=== PATIENT | female | born 1945 | race Hispanic/Latino ===

== ENCOUNTER 2017-03-28 10:19 | Outpatient (CLI) | payer MEDICARE, BC ==
--- NOTE | 2017-03-28 12:07 | MMO ---
BILATERAL SCREENING MAMMOGRAMS: Date: 03/28/17 Comparison made to prior exam from 2016. This patient's mammogram was interpreted with the assistance of computer-aided detection. FINDINGS: Scattered fibroglandular densities. Vascular calcifications and benign-appearing calcifications. No m ass or nodule. No interval change. Recommend one year follow-up. IMPRESSION: BIRADS 2: Benign Finding(s) POS: [facility]
== END 2017-03-28 10:20 | disposition home or self-care (01) ==
LOC: MAMMO 10:19
PROVIDERS: ATTEND Family Medicine
DX: Z12.31 Encounter for screening mammogram for malignant neoplasm of breast (principal)
CPT/HCPCS: 77067; G0202

== ENCOUNTER 2017-08-18 11:37 | Emergency (ER) | payer MEDICARE, BC ==
[2017-08-18 12:40] LABS: #Eosinphils 0.1 thou/uL (0.0-0.7); #Lymphocytes 1.9 thou/uL (1.20-3.40); #Monocytes 0.5 thou/uL (0.11-0.59); #Neutrophils 5.3 thou/uL (1.40-6.50); %Basophils 0.1 % (0.0-1.0); %Eosinophils 0.7 % (0.0-10.0); %Monocytes 6.8 % (0.0-10.0); %Neutrophils 68.4 % (42.0-75.0); Hemoglobin 14.2 g/dL (12.0-16.0); Mean Corpuscular HGB CONC 32.6 g/dL (32.0-36.0); Mean Corpuscular Volume 92.2 fl (81.0-99.0); Platelet Count 353 thou/uL (130-400); RBC Distribution Width 12.8 % (11.5-14.5); Red Blood Cell (RBC) Count 4.74 mill/uL (4.20-5.40); White Blood Cell (WBC) Count 7.7 thou/uL (4.8-10.8)
[2017-08-18 12:55] LABS: CKMB 3.2 ng/mL (0-6.6); Troponin I Less than 0.010 ng/mL (< 0.028)
--- NOTE | 2017-08-18 13:21 | RAD ---
PORTABLE UPRIGHT FRONTAL CHEST RADIOGRAPH: Date: 08/18/17 COMPARISON: 05/14/15. HISTORY: Injury. FINDINGS: Midline sternotomy wires are present. There are postsurgical clips in the right upper quadrant sugges ting prior cholecystectomy. Lung parenchyma is clear. IMPRESSION: No acute findings. POS: [facility]
== END 2017-08-18 14:54 | disposition home or self-care (01) ==
LOC: ERS 11:37
DX: B34.9 Viral infection, unspecified (principal); J45.909 Unspecified asthma, uncomplicated; E11.40 Type 2 diabetes mellitus with diabetic neuropathy, unspecified; E03.9 Hypothyroidism, unspecified; K21.9 Gastro-esophageal reflux disease without esophagitis; E78.5 Hyperlipidemia, unspecified; I10 Essential (primary) hypertension; Z79.82 Long term (current) use of aspirin; Z79.891 Long term (current) use of opiate analgesic; Z79.84 Long term (current) use of oral hypoglycemic drugs; Z79.899 Other long term (current) drug therapy
CPT/HCPCS: 71045; 82553; 84484; 85025; 93005

== ENCOUNTER 2017-09-25 13:46 | Outpatient (CLI) | payer MEDICARE, BC | END 2017-09-25 13:47 | disposition home or self-care (01) | LOC: BICULT 13:46 → EDSTATUS 14:15 | PROVIDERS: ATTEND Urology | DX: N13.30 Unspecified hydronephrosis (principal); N99.3 Prolapse of vaginal vault after hysterectomy | CPT/HCPCS: 76770 ==

== ENCOUNTER 2018-05-12 21:41 | Inpatient (IN) | payer MEDICARE, BC ==
[2018-05-12 22:55] LABS: #Basophils 0.1 thou/uL (0.0-0.2); #Lymphocytes 1.5 thou/uL (1.20-3.40); #Monocytes 1.1 thou/uL (0.11-0.59); #Neutrophils 9.7 thou/uL (1.40-6.50); %Basophils 0.4 % (0.0-1.0); %Eosinophils 0.3 % (0.0-10.0); %Monocytes 8.5 % (0.0-10.0); %Neutrophils 78.8 % (42.0-75.0); Hemoglobin 12.8 g/dL (12.0-16.0); Mean Corpuscular HGB CONC 34.1 g/dL (32.0-36.0); Mean Corpuscular Hemoglobin 33.7 pg (27.0-31.0); Mean Corpuscular Volume 98.9 fL (78.0-98.0); Mean Platelet Volume 6.8 fL (7.4-10.4); Platelet Count 282 thou/uL (130-400); RBC Distribution Width 11.9 % (11.5-14.5); Red Blood Cell (RBC) Count 3.79 mill/uL (4.20-5.40); White Blood Cell (WBC) Count 12.4 thou/uL (4.8-10.8)
--- NOTE | 2018-05-12 22:57 | RAD ---
UPRIGHT PORTABLE CHEST ONE VIEW: History: Generalized weakness, unwitnessed fall. FINDINGS: Rotation to the right. Midline sternotomy. No confluent pneumonia, overt edema or pleural effusion. N o evidence for pneumothorax. IMPRESSION: No significant acute intrathoracic disease. Rotation to the right. POS: [facility]
--- NOTE | 2018-05-12 23:07 | CT ---
BRAIN CT WITHOUT IV CONTRAST: History: 73-year-old female with history of injury following a fall. Comparison: 05-15-15 FINDINGS: Minimal motion artifact. There is some atrophy and chronic white matter ischemic change. No focal mas s or midline shift. No intra or extraaxial hemorrhage. Sinuses and mastoids are clear. IMPRESSION: No mass or bleed or other significant acute process. POS: [facility]
[2018-05-12 23:15] LABS: ALT (SGPT) 25 U/L (8-55); AST (SGOT) 23 U/L (5-34); Alkaline Phosphatase 53 U/L (40-150); Anion Gap 19 mmol/L (10-20); BUN (Urea Nitrogen) 21 mg/dL (9.8-20.1); Bilirubin, Total 0.4 mg/dL (0.2-1.2); Calc. Creatinine Clearance 0 mL/min (70-130); Calcium 9.9 mg/dL (7.8-10.44); Carbon Dioxide 22 mmol/L (23-31); Chloride 101 mmol/L (98-107); Estimated GFR-MDRD 44; Glucose 95 mg/dL (83-110); Lipase Less than 4 U/L (8-78); Potassium 5.2 mmol/L (3.5-5.1); Sodium 137 mmol/L (136-145)
[2018-05-13 00:07] LABS: Bilirubin Negative (Negative); Blood, Urine Small (Negative); Clarity CLOUDY (Clear); Glucose, Urine (Dipstick) Negative (Negative); Leukocyte Large (Negative); Nitrite Positive (Negative); Protein, Urine (Dipstick) 100 mg/dL (Neg-Trace); Specific Gravity, Urine 1.018 (1.002-1.036); Urobilinogen 0.2 mg/dL (0.2-1.0)
[2018-05-13 00:10] LABS: Bacteria/HPF 1+ HPF (None Seen); Hyaline Casts/LPF 0-3 HYALINE CAST LPF (0-3 Hyaline); Squamous Epithelial None Seen HPF (0-3)
[2018-05-13] MEDS ORDERED: Metoclopramide HCl 10 MG/2 ML VIAL ONE (00:35)
[2018-05-13] MEDS ORDERED: Acetaminophen 500 MG TAB ONE (00:45)
[2018-05-13] MEDS ORDERED: Nitrofurantoin Monohyd/M-Cryst 100 MG CAP PO SCH (01:45)
[2018-05-13 02:49] VITALS: BMI 29.8
[2018-05-13 02:50] LABS: Troponin I Less than 0.010 ng/mL (< 0.028)
[2018-05-13] MEDS ORDERED: Acetaminophen 325 MG TAB PO PRN (03:00)
[2018-05-13] MEDS ORDERED: Ondansetron PF 4 MG/2 ML Vial IVP PRN (03:00)
[2018-05-13] MEDS ORDERED: Ondansetron ODT 4 MG TAB SL PRN (03:00)
[2018-05-13 04:46] LABS: #Lymphocytes 1.9 thou/uL (1.20-3.40); #Monocytes 0.7 thou/uL (0.11-0.59); %Basophils 0.2 % (0.0-1.0); %Eosinophils 0.1 % (0.0-10.0); %Lymphocytes 16.2 % (21.0-51.0); %Monocytes 5.6 % (0.0-10.0); %Neutrophils 77.9 % (42.0-75.0); Hemoglobin 12.2 g/dL (12.0-16.0); Mean Corpuscular HGB CONC 33.6 g/dL (32.0-36.0); Mean Corpuscular Hemoglobin 33.2 pg (27.0-31.0); Mean Corpuscular Volume 98.8 fL (78.0-98.0); Mean Platelet Volume 6.7 fL (7.4-10.4); Platelet Count 281 thou/uL (130-400); RBC Distribution Width 11.9 % (11.5-14.5); Red Blood Cell (RBC) Count 3.68 mill/uL (4.20-5.40); White Blood Cell (WBC) Count 11.6 thou/uL (4.8-10.8)
[2018-05-13 05:11] LABS: Anion Gap 18 mmol/L (10-20); BUN (Urea Nitrogen) 20 mg/dL (9.8-20.1); Calc. Creatinine Clearance 48 mL/min (70-130); Calcium 9.6 mg/dL (7.8-10.44); Carbon Dioxide 22 mmol/L (23-31); Chloride 102 mmol/L (98-107); Estimated GFR-MDRD 49; Glucose 82 mg/dL (83-110); Potassium 4.9 mmol/L (3.5-5.1); Sodium 137 mmol/L (136-145)
[2018-05-13 05:17] LABS: Troponin I Less than 0.010 ng/mL (< 0.028)
[2018-05-13] MEDS ORDERED: Dextrose 5% in Water 1,000 ML IV PRN (05:20)
[2018-05-13] MEDS ORDERED: Dextrose 50% Abboject 50 ML SYRINGE SLOW IVP PRN (05:20)
[2018-05-13] MEDS ORDERED: Senokot S 8.6-50 MG TAB PO PRN (05:20)
[2018-05-13] MEDS ORDERED: Ondansetron ODT 4 MG TAB PO PRN (05:20)
[2018-05-13] MEDS ORDERED: Promethazine 25 MG TAB PO PRN (05:20)
[2018-05-13] MEDS ORDERED: traMADol HCl 50 MG TAB PO PRN (05:20)
[2018-05-13] MEDS: Levothyroxine Sodium 50 MCG TAB PO SCH (05:45)
[2018-05-13] MEDS: Sodium Chloride 0.9% 1,000 ML IV SCH ×4 (05:48→17:25)
--- NOTE | 2018-05-13 07:51 | RAD ---
THREE VIEWS LUMBAR SPINE: DATE: 05/13/2018. HISTORY: Trauma, fall, pain. FINDINGS: Radiopaque device overlies the lower pelvis. There is atherosclerotic calcification of the abdominal aorta and its branches. There is anterolisthesis of L4 on L5 measuring 1.5 cm. Multilevel disk spa ce narrowing, degenerative end plate, and anterior osteophyte formation noted at the thoracolumbar ju nction. There is prominent facet hypertrophy at L3-4, L4-5, and L5-S1. Disk space narrowing and vac uum disk formation at L4-5 and L5-S1. No acute fracture is seen. IMPRESSION: Prominent degenerative change with no evidence for acute fracture or dislocation. POS: [facility]
--- NOTE | 2018-05-13 08:01 | HP ---
PRIMARY CARE PHYSICIAN: The patient's PCP is myself, Dr. Javier Crawford. CHIEF COMPLAINT: Syncopal episode. HISTORY OF PRESENT ILLNESS: The patient with polyneuropathy regarding her diabetes, has struggled with dizziness over the last 1 to 2 years. She has been seen in the emergency department for dizziness and has been admitted in 2016 for near syncopal episode with urinary tract infection. The patient was found to have likely UTI on urine dip in the emergency room. The patient reportedly fell to right side after passing out and subsequently transferred to the emergency department by [facility] and [facility] has evaluated and did not have any findings of hemorrhagic bleeding. The patient did not show any signs of fractures on x-rays. The patient states her radio electronics officer is Dr. Dhaliwal. Last echo was 3 years ago. REVIEW OF SYSTEMS: No fevers or chills. Positive fatigue. No chest pain or shortness of breath. No cough. Positive nausea. No vomiting. Positive acid reflux. No blood in stool. Positive dysuria and urinary frequency. Some episodes of incontinence. Mild lower extremity edema. No skin breakdown reported. Positive dizziness and syncopal episode. LABORATORY DATA: Review of lab work; white blood cell count of 12.4, slightly macrocytic at 98.9, left shift with neutrophils of 97.8. Troponins x3 of less than 0.01. Lipase less than 4. Creatinine of 1.19, sodium of 137, potassium of 5.2 with repeat of 4.9, CO2 of 22, total bilirubin of 0.4, AST of 23, ALT of 25, and albumin of 4.0. Urinalysis with positive nitrites, positive large leukocyte esterase. On microscopy, positive blood, too numerous to count white blood cells, positive bacteria. Brain CT, no acute hemorrhagic or intracranial events. IMAGING DATA: Chest x-ray without acute cardiopulmonary findings. Lumbar spine x-ray read is pending. No grossly apparent fractures. We will follow up on radiology read. It does look like she has some degenerative disk disease. On review of past medical, social, and surgical history; allergies include codeine, Demerol, and penicillins. The patient takes tramadol on an outpatient basis regularly. She has taken morphine in the past. Iron deficiency anemia; hypothyroidism; diabetes type 2; hyperlipidemia; chronic pain syndrome with polyneuropathy; macular degeneration; hypertension; venous insufficiency, peripherally; history of mild intermittent asthma; gastroesophageal reflux disease; history of gout; CKD, stage 3; mixed urinary incontinence; prolapse of vaginal vault following hysterectomy; history of CABG, sensorineural hearing loss; gait instability. The patient is followed by Dr. Richard Woodson of Urology; Dr. Jung for Neurology; Dr. Carlos, Nephrology; Dr. Dhaliwal, Cardiology; Dr. Mendez, Gastroenterology; Dr. Myles, for Pain Management, carpal tunnel; Dr. Lee, Ophthalmology; and Dr. Barclay of Podiatry. Last stress test have on file was in 2013, was normal. HOME MEDICATIONS: Include; 1. Spironolactone 25 mg. 2. Tylenol Arthritis for breakthrough pain on top of extended-release tramadol 100 mg once daily. 3. Meclizine 25 mg one tab p.o. b.i.d. p.r.n. dizziness. 4. Metoprolol 25 mg half tablet twice daily. 5. Ferrous sulfate 325 mg daily. 6. Losartan 25 mg half tab daily. 7. Nexium 40 mg daily. 8. Lasix 20 mg one-half tab daily. 9. Flovent p.r.n. cough, wheeze twice daily. 10. Neurontin 100 mg twice daily. 11. Trinity 180 mg daily. 12. Metformin 500 mg extended release 2 tabs twice daily. 13. Baby aspirin 81 mg. 14. Simvastatin 40 mg. 15. Levothyroxine 50 mcg. SOCIAL HISTORY: The patient is reported to be a nonsmoker. Has a support of son living nearby, currently living in [place] with home health. PHYSICAL EXAMINATION: VITAL SIGNS: On arrival to floor, temperature of 98.5, pulse of 96, respiratory rate of 20, and blood pressure of 110/56. GENERAL: The patient is arousable, however, sleeping on entry to room. Does report some joint pain to right side, where she had fallen, verbalizes understanding regarding tramadol on as-needed basis at this point. HEENT: Head is normocephalic, atraumatic. Extraocular movements are intact. Oral mucosa is dry. HEART: Slightly tachycardic. No irregular beats. No murmurs. LUNGS: Clear to auscultation bilaterally. No rubs or wheezes. ABDOMEN: Soft, nontender. Positive bowel sounds throughout. EXTREMITIES: Lower extremities with trace pitting edema bilaterally. No cyanosis. NEUROLOGIC: The patient is arousable and oriented, however, quickly drifts off back to sleep. No focal deficits. ASSESSMENT AND PLAN: Syncopal episode, urinary tract infection. Right shoulder pain, chronic pain with polyneuropathy, diabetes type 2, coronary artery disease, hypothyroidism. We will transition from Macrobid, which was given in the emergency department as this may be a complicated urinary tract infection and escalate to Cipro. We will give IV fluids for dehydration and urinary tract infection. The patient has history of hydronephrosis and chronic kidney disease, stage 3. We will trend creatinine. Monitor for volume overload and restart the patient's Lasix when needed likely in the next 24 hours. We will get Physical Therapy to evaluate the patient and get her out of bed later today. We will brush the patient's echo and carotid Dopplers given longstanding history of dizziness and gait instability, most likely is just acutely worse made by her urinary tract infection. Once the antibiotics on board, and the patient stabilizes, we would likely transition to oral. Return the patient to home with home health to [place]. We will continue with PPI coverage and look at Lovenox prophylaxis coverage. Job ID: [id number]
[2018-05-13] MEDS: Losartan 25 MG TAB PO SCH (08:03)
[2018-05-13] MEDS: Acetaminophen 500 MG TAB PO PRN ×2 (08:04→18:12)
[2018-05-13] MEDS: Atenolol 25 MG TAB PO SCH (08:04)
[2018-05-13] MEDS: Aspirin 325 mg Enteric Coated Tablet PO SCH (08:04)
[2018-05-13] MEDS: Pantoprazole 40 MG GRANULES PACKET PO SCH ×2 (09:44→09:46)
[2018-05-13] MEDS: Gabapentin 400 MG CAP PO SCH ×4 (09:44→20:09)
--- NOTE | 2018-05-13 09:53 | ULT ---
CAROTID DUPLEX SONOGRAM: History: Syncope. Vascular disease. FINDINGS: Right: Noncalcified plaque. Color and spectral doppler evaluation, peak systolic velocity of 98 cm/sec and I C to CC ratio of 0.9 suggests no hemodynamically significant stenosis within the extracranial right I CA. Peak systolic velocity in the external carotid arteries measured at 192 cm/sec. Antegrade flow wi thin the vertebral artery. Left: Scattered plaque. Color and spectral doppler evaluation, peak systolic velocity of 97 cm/sec and IC t o CC ratio of 1.1 cm suggests no hemodynamically significant stenosis within the extracranial left IC A. Antegrade flow within the vertebral arteries. IMPRESSION: 1. Atherosclerosis. No sonographic evidence of significant extracranial ICA stenosis. 2. Incidental noted of elevated velocity within the right external carotid artery that may reflect st enosis and could be a source of carotid bruit. POS: [facility]
[2018-05-13] MEDS: Enoxaparin Sodium 40 MG/0.4 ML SYRINGE SC SCH (20:08)
[2018-05-13] MEDS: Simvastatin 40 MG TAB PO SCH (20:09)
[2018-05-14] MEDS: Acetaminophen 500 MG TAB PO PRN ×2 (04:14→15:47)
[2018-05-14 05:48] LABS: #Eosinphils 0.1 thou/uL (0.0-0.7); #Lymphocytes 1.5 thou/uL (1.20-3.40); #Monocytes 0.9 thou/uL (0.11-0.59); #Neutrophils 7.7 thou/uL (1.40-6.50); %Basophils 0.1 % (0.0-1.0); %Eosinophils 0.5 % (0.0-10.0); %Lymphocytes 14.9 % (21.0-51.0); %Monocytes 8.5 % (0.0-10.0); Mean Corpuscular HGB CONC 33.6 g/dL (32.0-36.0); Mean Platelet Volume 7.4 fL (7.4-10.4); Platelet Count 266 thou/uL (130-400); Red Blood Cell (RBC) Count 3.33 mill/uL (4.20-5.40); White Blood Cell (WBC) Count 10.2 thou/uL (4.8-10.8)
[2018-05-14] MEDS: Levothyroxine Sodium 50 MCG TAB PO SCH (05:53)
[2018-05-14 06:05] LABS: Anion Gap 14 mmol/L (10-20); BUN (Urea Nitrogen) 15 mg/dL (9.8-20.1); Calc. Creatinine Clearance 55 mL/min (70-130); Calcium 8.6 mg/dL (7.8-10.44); Carbon Dioxide 24 mmol/L (23-31); Chloride 101 mmol/L (98-107); Estimated GFR-MDRD 55; Glucose 122 mg/dL (83-110); Magnesium 1.5 mg/dL (1.6-2.6); Potassium 3.9 mmol/L (3.5-5.1); Sodium 135 mmol/L (136-145)
[2018-05-14 06:26] LABS: Free T4 (Free Thyroxine) 1.04 ng/dL (0.70-1.48); Thyroid Stimulating Hormone 0.3509 uIU/mL (0.35-4.94)
[2018-05-14 06:40] LABS: Folate (Folic Acid) 15.5 ng/mL (7.0-31.4)
[2018-05-14] MEDS ORDERED: Furosemide 40 MG TAB PO SCH (07:30)
[2018-05-14] MEDS ORDERED: Magnesium 2 GM/50 ML 2 GM in Premix Bag 1 BAG IVPB SCH (07:45)
[2018-05-14] MEDS: Atenolol 25 MG TAB PO SCH (09:48)
[2018-05-14] MEDS: Gabapentin 400 MG CAP PO SCH ×3 (09:48→20:46)
[2018-05-14] MEDS: Losartan 25 MG TAB PO SCH (09:49)
[2018-05-14] MEDS: Aspirin 325 mg Enteric Coated Tablet PO SCH (09:49)
[2018-05-14] MEDS: Enoxaparin Sodium 40 MG/0.4 ML SYRINGE SC SCH (20:45)
[2018-05-14] MEDS: Simvastatin 40 MG TAB PO SCH (20:46)
--- NOTE | 2018-05-14 22:52 | PRG ---
DATE OF SERVICE: 05/14/2018 HISTORY OF PRESENT ILLNESS: The patient is responding to antibiotics well, however, did have fever this morning of over 101. The patient has been restarted on her Lasix and reports good effect, clearing of lungs, felt better after breathing treatment from a respiratory status. Daughter at bedside states the patient is much more clear of mind compared to prior to admission. REVIEW OF VITAL SIGNS: Temperature 97.6, pulse of 63, respiratory rate of 16, oxygen saturation 98% on room air, blood pressure 124/81. LABORATORY WORK: Improved white blood cell count 10.2, hemoglobin following IV rehydration 11.0, neutrophil percent still elevated at 76. Blood glucose 173 to 132 in the last 12 hours. Magnesium 1.5, creatinine 0.9, sodium of 135, potassium of 3.9. T3 slightly low at 1.3. Blood cultures at 24 hours negative. Growth E coli with sensitivity to fluoroquinolones confirmed on urine culture. Echocardiogram with 45% to 50% ejection fraction, technically difficult study. Carotid Dopplers without any severe stenosis on the lower segment. PHYSICAL EXAMINATION: GENERAL: The patient is alert and oriented, no acute distress. HEENT: Head is normocephalic, atraumatic. Extraocular movements are intact. Sclerae are white. Oral mucosa is moist. NECK: Supple. HEART: Regular rate and rhythm. No murmurs auscultated. LUNGS: Clear to auscultation bilaterally. No rubs or wheezes. ABDOMEN: Soft, nontender. Positive bowel sounds throughout. EXTREMITIES: Lower extremities without cyanosis or edema. NEUROLOGICAL: The patient is alert and oriented x3. No focal deficits. Speech is normal. ASSESSMENT AND PLAN: Urinary tract infection, metabolic encephalopathy, hypomagnesemia, coronary artery disease, hypothyroid, hypertension. The patient is continued on current medications. We will decrease Lasix back to home dose tomorrow, increase the levothyroxine temporarily while inpatient. We will re-evaluate on outpatient basis if the patient needs to continue higher dose, may be secondary to patient missing one dose or two. Given the patient's continued fevers, we will continue IV antibiotics at this point in time. The patient is inpatient status, and we will follow up in the morning of the patient's progress. She appears to be tracking well with mentation and is working with physical therapy and ambulating better today. Job ID: [id number]
[2018-05-15 05:23] LABS: #Eosinphils 0.1 thou/uL (0.0-0.7); #Neutrophils 6.4 thou/uL (1.40-6.50); %Basophils 0.4 % (0.0-1.0); %Lymphocytes 21.2 % (21.0-51.0); %Neutrophils 67.4 % (42.0-75.0); Hemoglobin 11.5 g/dL (12.0-16.0); Mean Corpuscular HGB CONC 34.1 g/dL (32.0-36.0); Mean Corpuscular Hemoglobin 33.2 pg (27.0-31.0); Mean Corpuscular Volume 97.3 fL (78.0-98.0); Mean Platelet Volume 7.3 fL (7.4-10.4); Platelet Count 293 thou/uL (130-400); RBC Distribution Width 11.9 % (11.5-14.5); Red Blood Cell (RBC) Count 3.46 mill/uL (4.20-5.40); White Blood Cell (WBC) Count 9.5 thou/uL (4.8-10.8)
[2018-05-15 05:46] LABS: ALT (SGPT) 35 U/L (8-55); AST (SGOT) 33 U/L (5-34); Albumin 3.3 g/dL (3.4-4.8); Alkaline Phosphatase 58 U/L (40-150); Anion Gap 12 mmol/L (10-20); BUN (Urea Nitrogen) 15 mg/dL (9.8-20.1); Bilirubin, Total 0.2 mg/dL (0.2-1.2); Calc. Creatinine Clearance 53 mL/min (70-130); Calcium 8.9 mg/dL (7.8-10.44); Carbon Dioxide 28 mmol/L (23-31); Chloride 100 mmol/L (98-107); Estimated GFR-MDRD 53; Globulin 3.1 g/dL (2.4-3.5); Glucose 129 mg/dL (83-110); Potassium 3.8 mmol/L (3.5-5.1); Protein, Total 6.4 g/dL (6.0-8.3); Sodium 136 mmol/L (136-145)
[2018-05-15] MEDS: Levothyroxine Sodium 75 MCG TAB PO SCH (06:10)
[2018-05-15] MEDS: Losartan 25 MG TAB PO SCH (09:33)
[2018-05-15] MEDS: Gabapentin 400 MG CAP PO SCH ×3 (09:33→21:21)
[2018-05-15] MEDS: Atenolol 25 MG TAB PO SCH (09:34)
[2018-05-15] MEDS: Aspirin 325 mg Enteric Coated Tablet PO SCH (09:34)
[2018-05-15] MEDS: Furosemide 20 MG TAB PO SCH (09:35)
[2018-05-15] MEDS: Acetaminophen 500 MG TAB PO PRN (10:25)
[2018-05-15] MEDS: HumaLOG 300 UNITS/3 ML VIAL SC PRN ×2 (11:32→21:36)
[2018-05-15] MEDS ORDERED: traZODone HCl 50 MG TAB PO PRN (14:19)
[2018-05-15] MEDS ORDERED: Melatonin 3 MG TAB PO SCH (21:00)
[2018-05-15] MEDS: Enoxaparin Sodium 40 MG/0.4 ML SYRINGE SC SCH (21:20)
[2018-05-15] MEDS: Ciprofloxacin 500 MG TAB PO SCH (21:20)
[2018-05-15] MEDS: Simvastatin 40 MG TAB PO SCH (21:21)
--- NOTE | 2018-05-15 22:04 | PRG ---
DATE OF SERVICE: 05/15/2018 HISTORY OF PRESENT ILLNESS: The patient had several episodes where she appeared to collapse, but was able to be aroused without any deficits. nurse monitoring did not show any arrhythmias. The patient once fully awakened, she was alert, oriented, had no injuries as 1 episode was in chair and the other was in bed. On discussion with the patient's daughter and the patient, she normally does not nap, however, in the last 2 to 3 months, she has progressively had worsening sleep patterns, only sleeping approximately 5 hours and 1 to 2 hours of that being a nap during the day. The patient was noted to wake up yesterday about 2 o'clock in the morning and not be able to go back to sleep, was napping earlier today and when she is fully awakened, is at her baseline. When she is just woken, however, she appears to be somewhat confused still, is still working with physical therapy well. No new complaints. LABORATORY DATA: White blood cell count of 9.5, hemoglobin of 11.5, neutrophil percent of 65. Creatinine of 1.0, sodium of 136, potassium of 3.8, blood glucose is 95 to 304 in the last 16 hours. Blood cultures remain negative. PHYSICAL EXAMINATION: VITAL SIGNS: Review of vital signs; temperature 97.6, pulse of 62, respiratory rate of 16, oxygen saturation 96% on room air, blood pressure 150/67. GENERAL: The patient is alert, oriented, in no acute distress. HEENT: Head is normocephalic, atraumatic. Extraocular movements are intact. Sclerae are clear. Oral mucosa is moist. NECK: Supple. HEART: Regular rate and rhythm. No murmurs auscultated at time of exam. LUNGS: Clear to auscultation bilaterally. No rubs or wheezes. ABDOMEN: Soft, nontender. Positive bowel sounds throughout. EXTREMITIES: Lower extremities without cyanosis or edema. NEUROLOGICAL: The patient is alert and oriented x3. No focal deficits. Speech is normal. ASSESSMENT AND PLAN: Urinary tract infection; metabolic encephalopathy; insomnia with sleep deprivation; hypothyroidism, continuing with increased dose levothyroxine 75 mcg; given sleep changes, we will cover with melatonin this evening. Continue with ciprofloxacin and titrate to orals. We will likely discharge her home with Home Health as well as with care of daughter and son tomorrow if no further episodes of syncopal like activity. I believe that the episodes described were more along the lines of sleep deprivation and patient falling asleep rather than true syncopal episodes as echo, carotids, and troponins are all looked good during this hospitalization as well as brain CT. We will work on sleep and request sleep aid if needed going forward. Job ID: [id number]
[2018-05-16 05:13] LABS: #Eosinphils 0.1 thou/uL (0.0-0.7); #Lymphocytes 2.7 thou/uL (1.20-3.40); #Neutrophils 4.9 thou/uL (1.40-6.50); %Basophils 0.4 % (0.0-1.0); %Eosinophils 1.5 % (0.0-10.0); %Lymphocytes 31.2 % (21.0-51.0); %Monocytes 11.1 % (0.0-10.0); %Neutrophils 55.8 % (42.0-75.0); Hemoglobin 11.6 g/dL (12.0-16.0); Mean Corpuscular HGB CONC 34.2 g/dL (32.0-36.0); Mean Corpuscular Hemoglobin 33.4 pg (27.0-31.0); Mean Corpuscular Volume 97.6 fL (78.0-98.0); Mean Platelet Volume 7.3 fL (7.4-10.4); Platelet Count 319 thou/uL (130-400); RBC Distribution Width 11.8 % (11.5-14.5); Red Blood Cell (RBC) Count 3.47 mill/uL (4.20-5.40); White Blood Cell (WBC) Count 8.8 thou/uL (4.8-10.8)
[2018-05-16 05:38] LABS: ALT (SGPT) 33 U/L (8-55); AST (SGOT) 25 U/L (5-34); Albumin 3.3 g/dL (3.4-4.8); Alkaline Phosphatase 57 U/L (40-150); Anion Gap 18 mmol/L (10-20); BUN (Urea Nitrogen) 13 mg/dL (9.8-20.1); Bilirubin, Total 0.2 mg/dL (0.2-1.2); Calc. Creatinine Clearance 57 mL/min (70-130); Calcium 8.9 mg/dL (7.8-10.44); Carbon Dioxide 22 mmol/L (23-31); Chloride 98 mmol/L (98-107); Estimated GFR-MDRD 58; Globulin 3.1 g/dL (2.4-3.5); Glucose 130 mg/dL (83-110); Potassium 3.7 mmol/L (3.5-5.1); Protein, Total 6.4 g/dL (6.0-8.3); Sodium 134 mmol/L (136-145)
[2018-05-16] MEDS: Levothyroxine Sodium 75 MCG TAB PO SCH (05:54)
[2018-05-16] MEDS: Ciprofloxacin 500 MG TAB PO SCH (05:54)
[2018-05-16] MEDS: Gabapentin 400 MG CAP PO SCH ×2 (09:11→14:43)
[2018-05-16] MEDS: Atenolol 25 MG TAB PO SCH (09:11)
[2018-05-16] MEDS: Aspirin 325 mg Enteric Coated Tablet PO SCH (09:11)
[2018-05-16] MEDS: Furosemide 20 MG TAB PO SCH (09:11)
[2018-05-16] MEDS: Acetaminophen 500 MG TAB PO PRN ×2 (09:11→14:41)
[2018-05-16] MEDS: Losartan 25 MG TAB PO SCH (09:11)
[2018-05-16] MEDS: HumaLOG 300 UNITS/3 ML VIAL SC PRN (11:50)
--- NOTE | 2018-05-16 11:53 | PQF ---
CLINICAL DOCUMENTATION IMPROVEMENT CLARIFICATION FORM: ICD-10 Updated PLEASE DO AN ADDENDUM TO THE PROGRESS NOTE WITH ANY DOCUMENTATION UPDATES OR ADDITIONS AND CARRY THROUGH TO DC SUMMARY. THANK YOU. DATE: 05/16/18 ATTN: Dr. Crawford Please exercise your independent, professional judgment in responding to the clarification form. Clinical indicators are provided on the bottom of this form for your review Please check appropriate box(es): [ x ] Sepsis due to: E.coli [ ] Localized infection without sepsis [ ] Other diagnosis [ ] Unable to determine In addition, please specify: Present on Admission (POA): [ x ] Yes [ ] No [ ] Unable to determine For continuity of documentation, please document condition throughout progress notes and discharge summary. Thank You. CLINICAL INDICATORS - SIGNS / SYMPTOMS / LABS ER Record 05/12/18: BP 107/64 Pulse 93 H&P 05/13: white blood cell count 12.4 UTI Nursing VS 05/13 @ 0808: Temp 103.0 F PN 05/14: fever this morning of over 101 UTI, metabolic encephalopathy RISKS: H&P: Chronic pain with polyneuropathy, diabetes type 2, CAD. Hx of hydronephrosis and CKD 3. UTI TREATMENT: Order 05/13-05/15: IV Cipro Order 05/15: Cipro 500 mg po. Thank you, Camelia (This form is maintained as a part of the permanent medical record) 2014 [employer]. All Rights Reserved Camelia Fowler RN, BSN [email or web address] Office: [phone] [facility]
[2018-05-16 12:01] VITALS: BP 128/58; TEMP 97.5
--- NOTE | 2018-05-17 05:38 | DIS ---
DATE OF ADMISSION: 05/14/2018 DATE OF DISCHARGE: 05/16/2018 CHIEF COMPLAINT: Syncopal episode. HISTORY OF PRESENT ILLNESS: The patient has responded poorly to urinary tract infections in the past, has had apparent syncopal episode. Had echocardiogram showing 45% to 50% ejection fraction. Carotid Dopplers did not show significant stenosis in lower segments. Brain CT did not show hemorrhagic component. Chest x-ray was clear. The patient did suffer a fall with some bruising peripherally. Lumbar spine x-ray without compression fractures. The patient was found to have metabolic encephalopathy and UTI with sepsis, found to be with E coli, treated with ciprofloxacin which it was sensitive to. The patient transitioned to orals after IV rehydration, returned back to Lasix given patient's mild congestive heart failure, systolic, and did well with blood sugars with sliding scale insulin. The patient's thyroid medications were slightly increased and the patient was noted sleep depravation. Prior to admission, was started on melatonin. DISCHARGE MEDICATIONS: Include spironolactone 12.5 mg daily, melatonin 3 mg at bedtime, levothyroxine increased to 75 mcg q.a.m., ciprofloxacin 500 mg b.i.d. for 5 additional days, tramadol extended release 100 mg daily, simvastatin 40 mg nightly, metoprolol 12.5 mg b.i.d., 1000 mg of metformin b.i.d., meclizine 25 mg one tab p.r.n. dizziness, losartan 12.5 mg daily, gabapentin 800 mg b.i.d., Lasix 20 mg daily, ferrous sulfate 325 mg daily, esomeprazole 40 mg daily, baby aspirin 81 mg, Tylenol 650 q.4 hours p.r.n. pain, rescue inhaler, albuterol sulfate two puffs p.r.n. cough and wheeze. DISCHARGE CONDITION: Good. DISPOSITION: Home with home health, Physical Therapy and Nursing, which patient had prior to admission. Good family support. DISCHARGE DIET: ADA. ACTIVITY: The patient can ambulate with assistance or with a walker. DISCHARGE FOLLOWUP: With myself, Dr. Jaiver Crawford, within 7-10 days of discharge. Job ID: [id number]
--- NOTE | 2018-05-18 11:41 | EKG ---
Test Reason : Blood Pressure : / mmHG Vent. Rate : 088 BPM Atrial Rate : 088 BPM P-R Int : 168 ms QRS Dur : 072 ms QT Int : 350 ms P-R-T Axes : 041 -40 031 degrees QTc Int : 423 ms Sinus rhythm with marked sinus arrhythmia Left axis deviation Low voltage QRS Inferior infarct , age undetermined Abnormal ECG Confirmed by ARMEN MCLAUGHLIN ([id number]), news videotape editor GEENA COLLINS ([id number]) on 05/18/2018 11:41:21 AM Referred By: Confirmed By:ARMEN MCLAUGHLIN
== END 2018-05-16 15:20 | DRG 871 ==
LOC: ERS 21:41 → 2SW 05-13 02:44 → OBSVTOIN 05-14 05:42 → 2NO 05-14 17:45
PROVIDERS: ADMIT Family Medicine; ATTEND Family Medicine
DX: A41.51 Sepsis due to Escherichia coli [E. coli] (principal); G93.41 Metabolic encephalopathy; N39.0 Urinary tract infection, site not specified; E11.42 Type 2 diabetes mellitus with diabetic polyneuropathy; G89.29 Other chronic pain; I25.10 Atherosclerotic heart disease of native coronary artery without angina pectoris; E03.9 Hypothyroidism, unspecified; E86.0 Dehydration; N18.3 Chronic kidney disease, stage 3 (moderate); E78.5 Hyperlipidemia, unspecified; I12.9 Hypertensive chronic kidney disease with stage 1 through stage 4 chronic kidney disease, or unspecified chronic kidney disease; E83.42 Hypomagnesemia; G47.00 Insomnia, unspecified; H35.30 Unspecified macular degeneration; K21.9 Gastro-esophageal reflux disease without esophagitis; J45.909 Unspecified asthma, uncomplicated; M10.9 Gout, unspecified; Z90.710 Acquired absence of both cervix and uterus; Z95.1 Presence of aortocoronary bypass graft; Z79.82 Long term (current) use of aspirin; Z79.899 Other long term (current) drug therapy; Z88.5 Allergy status to narcotic agent; Z88.0 Allergy status to penicillin; Z88.8 Allergy status to other drugs, medicaments and biological substances
CPT/HCPCS: 36415; 36416; 51701; 70450; 71045; 72100; 80048; 80053; 81003; 81015; 82607; 82746; 83605; 83690; 83735; 84439; 84443; 84481; 84484; 85025; 87040; 87077; 87086; 87186; 93005; 93306; 93880; 94640; 96361; 96374; A4353; J0744; J1650; J2765; J7620

== ENCOUNTER 2018-12-06 19:59 | Observation (INO) | payer MEDICARE, BC ==
--- NOTE | 2018-12-06 20:48 | RAD ---
XR Chest 1 View Portable History: Fall. Trauma. Comparison: Radiograph April 2018 Findings: Lungs are clear. No pneumothorax or effusion. Cardiac silhouette and mediastinal contours a re similar. No acute osseous abnormality. Impression: No acute intrathoracic abnormality.
[2018-12-06 20:53] LABS: #Eosinphils 0.1 thou/uL (0.0-0.7); #Lymphocytes 3.1 thou/uL (1.20-3.40); #Monocytes 0.6 thou/uL (0.11-0.59); #Neutrophils 4.4 thou/uL (1.40-6.50); %Basophils 0.2 % (0.0-1.0); %Eosinophils 1.5 % (0.0-10.0); %Lymphocytes 37.7 % (21.0-51.0); %Monocytes 7.1 % (0.0-10.0); %Neutrophils 53.5 % (42.0-75.0); Mean Corpuscular HGB CONC 33.1 g/dL (32.0-36.0); Mean Corpuscular Hemoglobin 32.6 pg (27.0-31.0); Mean Corpuscular Volume 98.6 fL (78.0-98.0); Mean Platelet Volume 6.8 fL (7.4-10.4); Platelet Count 403 thou/uL (130-400); RBC Distribution Width 12.2 % (11.5-14.5); Red Blood Cell (RBC) Count 3.66 mill/uL (4.20-5.40); White Blood Cell (WBC) Count 8.2 thou/uL (4.8-10.8)
[2018-12-06 21:14] LABS: ALT (SGPT) 15 U/L (8-55); AST (SGOT) 16 U/L (5-34); Albumin 4.1 g/dL (3.4-4.8); Alkaline Phosphatase 67 U/L (40-150); Anion Gap 15 mmol/L (10-20); BUN (Urea Nitrogen) 21 mg/dL (9.8-20.1); Bilirubin, Total 0.2 mg/dL (0.2-1.2); Calc. Creatinine Clearance 0 mL/min (70-130); Calcium 9.9 mg/dL (7.8-10.44); Carbon Dioxide 25 mmol/L (23-31); Chloride 98 mmol/L (98-107); Estimated GFR-MDRD 36; Globulin 2.7 g/dL (2.4-3.5); Glucose 85 mg/dL (83-110); Protein, Total 6.8 g/dL (6.0-8.3); Sodium 132 mmol/L (136-145)
[2018-12-07 00:05] LABS: Bilirubin Negative (Negative); Blood, Urine Negative (Negative); Clarity Clear (Clear); Glucose, Urine (Dipstick) Normal (Negative); Leukocyte 500 Leu/uL (Negative); Nitrite Negative (Negative); Protein, Urine (Dipstick) Negative (Neg-Trace); RBC/HPF 0-3 HPF (0-3); Squamous Epithelial None Seen HPF (0-3); Urobilinogen Normal mg/dL (Less than 2); WBC/HPF 21-50 HPF (0-3)
[2018-12-07 00:12] LABS: Bacteria/HPF None Seen HPF (None Seen)
[2018-12-07] MEDS ORDERED: Sodium Chloride 0.9% 1,000 ML IV SCH (00:42)
[2018-12-07] MEDS ORDERED: Acetaminophen 325 MG TAB PO PRN (00:42)
[2018-12-07] MEDS ORDERED: Ondansetron PF 4 MG/2 ML Vial IVP PRN (00:42)
[2018-12-07] MEDS ORDERED: Ondansetron ODT 4 MG TAB SL PRN (00:42)
[2018-12-07 05:11] LABS: #Basophils 0.1 thou/uL (0.0-0.2); #Eosinphils 0.2 thou/uL (0.0-0.7); #Lymphocytes 3.6 thou/uL (1.20-3.40); #Monocytes 0.6 thou/uL (0.11-0.59); %Basophils 0.8 % (0.0-1.0); %Eosinophils 2.1 % (0.0-10.0); %Lymphocytes 42.1 % (21.0-51.0); %Monocytes 7.1 % (0.0-10.0); %Neutrophils 47.9 % (42.0-75.0); Hemoglobin 11.8 g/dL (12.0-16.0); Mean Corpuscular HGB CONC 32.9 g/dL (32.0-36.0); Mean Corpuscular Hemoglobin 32.5 pg (27.0-31.0); Mean Platelet Volume 6.6 fL (7.4-10.4); Platelet Count 386 thou/uL (130-400); RBC Distribution Width 12.2 % (11.5-14.5); Red Blood Cell (RBC) Count 3.63 mill/uL (4.20-5.40); White Blood Cell (WBC) Count 8.4 thou/uL (4.8-10.8)
[2018-12-07 05:32] LABS: ALT (SGPT) 13 U/L (8-55); AST (SGOT) 15 U/L (5-34); Albumin 3.6 g/dL (3.4-4.8); Alkaline Phosphatase 60 U/L (40-150); Anion Gap 12 mmol/L (10-20); BUN (Urea Nitrogen) 15 mg/dL (9.8-20.1); Bilirubin, Total 0.2 mg/dL (0.2-1.2); Calc. Creatinine Clearance 46 mL/min (70-130); Calcium 9.4 mg/dL (7.8-10.44); Carbon Dioxide 25 mmol/L (23-31); Chloride 103 mmol/L (98-107); Estimated GFR-MDRD 45; Globulin 2.8 g/dL (2.4-3.5); Glucose 79 mg/dL (83-110); Protein, Total 6.4 g/dL (6.0-8.3); Sodium 135 mmol/L (136-145)
[2018-12-07] MEDS ORDERED: PROVENTIL INHALER 6.7 G (200 INHALATIONS) INH PRN (09:22)
[2018-12-07] MEDS ORDERED: Meclizine HCl 25 MG TAB PO PRN ×2 (09:22→09:31)
[2018-12-07] MEDS ORDERED: [UNRECOGNIZED DRUG - OTHER] PO PRN (09:22)
[2018-12-07] MEDS ORDERED: Acetaminophen ER (8hr) 650 MG TAB PO PRN (09:22)
[2018-12-07] MEDS ORDERED: Calcium Polycarbophil 625 MG TAB PO PRN (09:35)
[2018-12-07 12:31] LABS: Anion Gap 12 mmol/L (10-20); BUN (Urea Nitrogen) 14 mg/dL (9.8-20.1); Calc. Creatinine Clearance 48 mL/min (70-130); Calcium 9.4 mg/dL (7.8-10.44); Carbon Dioxide 25 mmol/L (23-31); Chloride 102 mmol/L (98-107); Estimated GFR-MDRD 48; Glucose 121 mg/dL (83-110); Potassium 5.4 mmol/L (3.5-5.1); Sodium 134 mmol/L (136-145)
[2018-12-07] MEDS ORDERED: Gabapentin 400 MG CAP PO SCH (14:30)
[2018-12-07] MEDS ORDERED: Furosemide 20 MG TAB PO SCH (14:30)
[2018-12-07] MEDS ORDERED: Colchicine 0.3 MG TAB PO SCH (14:30)
[2018-12-07] MEDS ORDERED: Metoprolol Tartrate 25 MG TAB PO SCH ×2 (14:30→21:00)
[2018-12-07] MEDS ORDERED: Aspirin 81 mg Enteric Coated Tablet PO SCH (14:30)
[2018-12-07] MEDS ORDERED: Ferrous Sulfate 325 MG TAB PO SCH (14:30)
[2018-12-07] MEDS: Sodium Chloride 0.9% 1,000 ML IV SCH ×2 (14:46→20:47)
[2018-12-07] MEDS: metFORMIN XR 500 MG TAB PO SCH (17:41)
[2018-12-07] MEDS: Gabapentin 400 MG CAP PO SCH (20:47)
[2018-12-07] MEDS: Colchicine 0.3 MG TAB PO SCH (20:48)
[2018-12-07] MEDS: Ciprofloxacin 500 MG TAB PO SCH (20:48)
[2018-12-07] MEDS: Metoprolol Tartrate 25 MG TAB PO SCH (20:49)
[2018-12-07] MEDS ORDERED: METFORMIN HCL PO SCH (21:00)
[2018-12-07] MEDS ORDERED: Atorvastatin Calcium 20 MG TAB PO SCH (21:00)
[2018-12-07] MEDS ORDERED: Colchicine 0.6 MG TAB PO SCH (21:00)
[2018-12-07] MEDS ORDERED: Melatonin 3 MG TAB PO SCH (21:00)
[2018-12-07] MEDS ORDERED: Simvastatin 40 MG TAB PO SCH (21:00)
[2018-12-07] MEDS ORDERED: Non-Formulary Item 1 EACH (Gabapentin [Neurontin] 800 MG) PO SCH (21:00)
[2018-12-08] MEDS: Ciprofloxacin 500 MG TAB PO SCH (05:39)
[2018-12-08 05:47] LABS: #Eosinphils 0.2 thou/uL (0.0-0.7); #Lymphocytes 3.2 thou/uL (1.20-3.40); #Monocytes 0.5 thou/uL (0.11-0.59); #Neutrophils 3.7 thou/uL (1.40-6.50); %Basophils 0.5 % (0.0-1.0); %Eosinophils 2.5 % (0.0-10.0); %Lymphocytes 41.5 % (21.0-51.0); %Monocytes 6.8 % (0.0-10.0); %Neutrophils 48.7 % (42.0-75.0); Hemoglobin 11.5 g/dL (12.0-16.0); Mean Corpuscular HGB CONC 32.8 g/dL (32.0-36.0); Mean Corpuscular Hemoglobin 32.5 pg (27.0-31.0); Mean Corpuscular Volume 99.2 fL (78.0-98.0); Mean Platelet Volume 6.6 fL (7.4-10.4); Platelet Count 385 thou/uL (130-400); RBC Distribution Width 12.2 % (11.5-14.5); Red Blood Cell (RBC) Count 3.54 mill/uL (4.20-5.40); White Blood Cell (WBC) Count 7.6 thou/uL (4.8-10.8)
[2018-12-08] MEDS ORDERED: Levothyroxine Sodium 75 MCG TAB PO SCH (06:00)
[2018-12-08] MEDS ORDERED: Levothyroxine Sodium 100 MCG TAB PO SCH (06:00)
[2018-12-08 06:05] LABS: Anion Gap 13 mmol/L (10-20); BUN (Urea Nitrogen) 9 mg/dL (9.8-20.1); Calc. Creatinine Clearance 58 mL/min (70-130); Calcium 9.1 mg/dL (7.8-10.44); Carbon Dioxide 23 mmol/L (23-31); Chloride 104 mmol/L (98-107); Estimated GFR-MDRD 60; Glucose 92 mg/dL (83-110); Sodium 136 mmol/L (136-145)
[2018-12-08 08:20] VITALS: BP 113/57; TEMP 97.8
--- NOTE | 2018-12-08 08:30 | HP ---
HISTORY OF PRESENT ILLNESS: This is a 73-year-old female, who presents with weakness. The patient has a history of heart disease, chronic kidney disease, hypertension, hyperlipidemia, diabetes, and lupus. She was recently treated for UTI with Cipro. Yesterday, the patient was at home and she had 2 falls and was complaining of marked weakness. Her daughter brought her to the ER, where she was found to have a potassium of 6.0. She was given IV fluids, and this morning, she is feeling much better. The daughter states she is back to baseline. Her potassium this morning was 5.0. PAST MEDICAL HISTORY: Iron deficiency anemia, B12 deficiency, gout, chronic kidney disease, hypertension, hyperlipidemia, diabetes, heart disease, lupus, UTIs. Other past medical history includes hypothyroidism, asthma. PAST SURGICAL HISTORY: Include hysterectomy, cholecystectomy, coronary artery bypass grafting x3, cystoscopy, EGD, colonoscopy. FAMILY HISTORY: Positive for diabetes, heart disease, prostate cancer. SOCIAL HISTORY: She is a nonsmoker, nondrinker. She is retired. She lives alone at [place]. She does use a walker for ambulation. REVIEW OF SYSTEMS: As above. ALLERGIES: PENICILLIN, WHICH CAUSES HIVES AND CODEINE CAUSES ALLERGIES. PHYSICAL EXAMINATION: VITAL SIGNS: Temperature 97.9, pulse 77, respirations 16, blood pressure 122/61. GENERAL: The patient is in no acute distress. HEENT: Clear. NECK: Supple. HEART: Regular rate and rhythm. LUNGS: Clear. ABDOMEN: Soft, nontender. EXTREMITIES: No edema. LABORATORY DATA: White count 8.2, H and H of 12 and 36. White count this morning 8.4, and H and H 11 and 36. Sodium 132 to 135, creatinine 1.42 to 1.17, potassium 6.0 to 5.0. Troponin less than 0.010. ASSESSMENT: 1. Weakness/dehydration. 2. Hyperkalemia. 3. Dehydration. 4. Urinary tract infection. 5. Iron deficiency anemia. 6. B12 deficiency. 7. Gout. 8. Chronic kidney disease stage 3. 9. Hypertension. 10. Hyperlipidemia. 11. Diabetes. 12. Coronary artery disease, status post bypass. 13. Lupus. PLAN: 1. Hydrate. 2. Plan to recheck potassium at noon. Most likely the combination of Cipro, losartan, and spironolactone responsible for raising the patient's potassium. We will hold losartan for right now. We will recheck potassium at noon and possibly discharge home if the patient remains stable. 3. We will continue Cipro for now. 4. I have recommended the patient follow up with Dr. Crawford on Sunday or Sunday. 5. We will continue to follow. Job ID: [id number]
[2018-12-08] MEDS ORDERED: Aspirin 81 mg Enteric Coated Tablet PO SCH (09:00)
[2018-12-08] MEDS ORDERED: Fluticasone Propionate HFA 44 MCG AER INH SCH (09:00)
[2018-12-08] MEDS ORDERED: CYANOCOBALAMIN 2000 MCG PO SCH (09:00)
[2018-12-08] MEDS ORDERED: Spironolactone 25 MG TAB PO SCH (09:00)
[2018-12-08] MEDS ORDERED: [UNRECOGNIZED DRUG - REMARK] PO SCH (09:00)
[2018-12-08] MEDS ORDERED: Prenatal Vitamin 1 TAB PO SCH (09:00)
[2018-12-08] MEDS ORDERED: Non-Formulary Item 1 EACH (Tramadol Hcl [Tramadol Hcl Er] 100 MG) PO SCH (09:00)
[2018-12-08] MEDS ORDERED: Cyanocobalamin (Vitamin B-12) 1,000 MCG TAB PO SCH (09:00)
[2018-12-08] MEDS ORDERED: TRAMADOL HCL 100 MG PO SCH (09:00)
[2018-12-08] MEDS ORDERED: Non-Formulary Item 1 EACH (Esomeprazole Magnesium [Nexium] 40 MG) PO SCH (09:00)
[2018-12-08] MEDS ORDERED: Calcium Carbonate + Vit D 1 TAB PO SCH ×2 (09:00)
[2018-12-08] MEDS ORDERED: Non-Formulary Item 1 EACH (Ferrous Sulfate [Iron] 325 MG) PO SCH (09:00)
[2018-12-08] MEDS ORDERED: Furosemide 20 MG TAB PO SCH ×2 (09:00)
[2018-12-08] MEDS ORDERED: Ferrous Sulfate 325 MG TAB PO SCH (09:00)
[2018-12-08] MEDS: metFORMIN XR 500 MG TAB PO SCH (09:58)
[2018-12-08] MEDS: Gabapentin 400 MG CAP PO SCH (09:59)
[2018-12-08] MEDS: Metoprolol Tartrate 25 MG TAB PO SCH (09:59)
[2018-12-08] MEDS: Colchicine 0.3 MG TAB PO SCH (10:00)
[2018-12-08] MEDS ORDERED: Mometasone 100 MCG HFA INHALER INH SCH (18:30)
--- NOTE | 2018-12-09 15:43 | DIS ---
DATE OF ADMISSION: 12/06/2018 DATE OF DISCHARGE: 12/08/2018 DISCHARGE DIAGNOSES: 1. Weakness. 2. Hyperkalemia. 3. Dehydration. 4. Iron deficiency anemia. 5. B12 deficiency. 6. Gout. 7. Chronic kidney disease, stage 3. 8. Hypertension. 9. Hyperlipidemia. 10. Diabetes. 11. Coronary artery disease, status post bypass. 12. Lupus. 13. Urinary tract infection. MEDICATIONS: 1. Aspirin 81 daily. 2. Trinity 180 daily. 3. Iron 325 daily. 4. Spironolactone 25 one-half tablet daily. 5. Simvastatin 40 daily. 6. Meclizine 25 p.r.n. 7. Levothyroxine 75 daily. 8. Hold losartan 25 daily. 9. Metformin 500 two b.i.d. 10. Flovent daily. 11. Neurontin 800 b.i.d. 12. Metoprolol 25 one-half b.i.d. 13. Colchicine 0.6 b.i.d. 14. Tramadol p.r.n. 15. Lasix 20 one-half daily. 16. Cipro 500 b.i.d. BRIEF HISTORY: This is a 73-year-old female, who presented to the emergency room with weakness. No complaints of any chest pain, nausea, or vomiting. She was found to have an elevated potassium of 6.0. This was somewhat concerning and the patient was admitted for further evaluation. HOSPITAL COURSE: The patient was on losartan as well as spironolactone combined with dehydration, may have caused the patient's elevated potassium. The patient was hydrated during her hospital stay. Her losartan and spironolactone were held briefly. Cipro may have contributed to the elevated potassium. The patient has remained relatively asymptomatic throughout her stay. This morning, her sodium was 136, her potassium was 4.0, creatinine 0.92 down from 1.42. The patient is much more hydrated, is feeling much better. She will be discharged to follow up this week with Dr. Crawford possibly to adjust her medications. May have to stop the losartan and monitor potassium for the next several weeks. Job ID: [id number]
== END 2018-12-08 12:10 | disposition home or self-care (01) ==
LOC: ERS 19:59 → 2SW 23:53
PROVIDERS: ADMIT Family Medicine; ATTEND Family Medicine
DX: R53.1 Weakness (principal); E87.5 Hyperkalemia; E86.0 Dehydration; D50.9 Iron deficiency anemia, unspecified; E53.8 Deficiency of other specified B group vitamins; M10.9 Gout, unspecified; I13.10 Hypertensive heart and chronic kidney disease without heart failure, with stage 1 through stage 4 chronic kidney disease, or unspecified chronic kidney disease; E11.22 Type 2 diabetes mellitus with diabetic chronic kidney disease; N18.3 Chronic kidney disease, stage 3 (moderate); D63.1 Anemia in chronic kidney disease; E78.5 Hyperlipidemia, unspecified; I25.10 Atherosclerotic heart disease of native coronary artery without angina pectoris; M32.9 Systemic lupus erythematosus, unspecified; N39.0 Urinary tract infection, site not specified; E03.9 Hypothyroidism, unspecified; J45.909 Unspecified asthma, uncomplicated; Z95.1 Presence of aortocoronary bypass graft; Z88.0 Allergy status to penicillin; Z88.5 Allergy status to narcotic agent; Z79.84 Long term (current) use of oral hypoglycemic drugs; Z79.82 Long term (current) use of aspirin; Z79.51 Long term (current) use of inhaled steroids; Z79.899 Other long term (current) drug therapy
CPT/HCPCS: 71045; 80048 ×2; 80053 ×2; 84484; 85025 ×3; 93005; 96360; 96361 ×2; 99285; G0378 ×3; 36415; 81003; 81015

== ENCOUNTER 2019-04-17 16:53 | Inpatient (IN) | payer MEDICARE, BC ==
[2019-04-17 17:36] LABS: #Basophils 0.1 thou/uL (0.0-0.2); #Lymphocytes 1.6 thou/uL (1.20-3.40); #Monocytes 0.7 thou/uL (0.11-0.59); #Neutrophils 6.8 thou/uL (1.40-6.50); %Basophils 0.7 % (0.0-1.0); %Eosinophils 0.3 % (0.0-10.0); %Lymphocytes 17.8 % (21.0-51.0); %Monocytes 7.3 % (0.0-10.0); %Neutrophils 73.9 % (42.0-75.0); Hemoglobin 12.8 g/dL (12.0-16.0); Mean Corpuscular HGB CONC 34.1 g/dL (32.0-36.0); Mean Corpuscular Hemoglobin 32.7 pg (27.0-31.0); Mean Corpuscular Volume 95.7 fL (78.0-98.0); Mean Platelet Volume 6.9 fL (7.4-10.4); Platelet Count 306 thou/uL (130-400); RBC Distribution Width 11.9 % (11.5-14.5); Red Blood Cell (RBC) Count 3.92 mill/uL (4.20-5.40); White Blood Cell (WBC) Count 9.2 thou/uL (4.8-10.8)
[2019-04-17 17:36] LABS: Bilirubin Negative (Negative); Blood, Urine Negative (Negative); Clarity Clear (Clear); Glucose, Urine (Dipstick) Normal (Negative); Leukocyte Negative Leu/uL (Negative); Nitrite Negative (Negative); Protein, Urine (Dipstick) Negative (Neg-Trace); Urobilinogen Normal mg/dL (Less than 2)
[2019-04-17 17:47] LABS: Amphetamine Not Detected (NotDetected); Barbiturates Screen Not Detected (NotDetected); Benzodiazepine Screen Not Detected (NotDetected); Cocaine Metabolite Screen Not Detected (NotDetected); Medtox Control Line Valid? VALID (VALID); Medtox Reader # READER 4; Methadone Not Detected (NotDetected); Methamphetamine Not Detected (NotDetected); Opiate Screen Not Detected (NotDetected); Oxycodone Screen Not Detected (NotDetected); Phencyclidine (PCP) Not Detected (NotDetected); THC/Cannabinoid Screen Not Detected (NotDetected); Tricyclic Screen Not Detected (NotDetected)
[2019-04-17 18:00] LABS: ALT (SGPT) 10 U/L (8-55); AST (SGOT) 12 U/L (5-34); Albumin 4.2 g/dL (3.4-4.8); Alkaline Phosphatase 49 U/L (40-110); Anion Gap 12 mmol/L (10-20); BUN (Urea Nitrogen) 15 mg/dL (9.8-20.1); Bilirubin, Total 0.3 mg/dL (0.2-1.2); Calc. Creatinine Clearance 0 mL/min (70-130); Calcium 9.5 mg/dL (7.8-10.44); Carbon Dioxide 29 mmol/L (23-31); Chloride 97 mmol/L (98-107); Estimated GFR-MDRD 66; Globulin 2.5 g/dL (2.4-3.5); Glucose 115 mg/dL (83-110); Lipase 5 U/L (8-78); Potassium 4.4 mmol/L (3.5-5.1); Protein, Total 6.7 g/dL (6.0-8.3); Sodium 134 mmol/L (136-145)
[2019-04-17 18:05] LABS: Acetaminophen Less than 6.0 mcg/mL (10.0-30.0); Alcohol Less than 10 mg/dL (Less than 10)
[2019-04-17 18:15] LABS: Salicylate Less than 8.0 mg/dL (15.0-30.0)
--- NOTE | 2019-04-17 18:18 | CT ---
CT BRAIN WITHOUT CONTRAST: 04/17/19 HISTORY: Altered mental status. COMPARISON: 05/02/18. FINDINGS: Changes of cortical atrophy and chronic small vessel ischemic disease are again seen. No evidence of acute infarct, hemorrhage, midline shift or abnormal extra-axial fluid collections are noted. The candace tricular size is stable and the basilar cisterns patent. The bony calvarium is intact. The visualized paranasal sinuses and mastoid air cells are well aerated. IMPRESSION: No CT evidence of acute intracranial process. POS: [facility]
--- NOTE | 2019-04-17 19:10 | RAD ---
Portable chest: HISTORY: Confusion. Mental status change. Weakness. COMPARISON: 12/06/2018 FINDINGS: Lung gore are clear. Heart and mediastinum appear unremarkable. Postop sternotomy changes . Vascularity is normal. Visualized osseous structures unremarkable. IMPRESSION: No acute finding
[2019-04-17] MEDS ORDERED: HYDROcodone/Acetaminophen 5/325 mg Tablet PO PRN (20:55)
[2019-04-17] MEDS ORDERED: Ondansetron PF 4 MG/2 ML Vial IVP PRN (20:55)
[2019-04-17] MEDS ORDERED: Dextrose 5% in Water 1,000 ML IV PRN (20:55)
[2019-04-17] MEDS ORDERED: Acetaminophen 325 MG TAB PO PRN (20:55)
[2019-04-17] MEDS ORDERED: Senokot S 8.6-50 MG TAB PO PRN (20:55)
[2019-04-17] MEDS ORDERED: HumaLOG 300 UNITS/3 ML VIAL SC PRN (20:55)
[2019-04-17] MEDS ORDERED: Dextrose 50% Abboject 50 ML SYRINGE SLOW IVP PRN (20:55)
[2019-04-17] MEDS ORDERED: Morphine 2 MG/ML SYRINGE SLOW IVP PRN (20:58)
[2019-04-17] MEDS: Simvastatin 40 MG TAB PO SCH (22:10)
[2019-04-17] MEDS: Metoprolol Tartrate 25 MG TAB PO SCH (22:11)
[2019-04-17] MEDS: Sodium Chloride 0.9% 1,000 ML IV SCH (22:13)
[2019-04-18] VITALS: BMI 30.2
[2019-04-18] MEDS ORDERED: Levothyroxine Sodium 100 MCG TAB PO SCH (06:00)
[2019-04-18 06:33] LABS: #Basophils 0.1 thou/uL (0.0-0.2); #Eosinphils 0.1 thou/uL (0.0-0.7); #Lymphocytes 2.3 thou/uL (1.20-3.40); #Monocytes 0.7 thou/uL (0.11-0.59); %Basophils 0.7 % (0.0-1.0); %Eosinophils 1.7 % (0.0-10.0); %Lymphocytes 27.8 % (21.0-51.0); %Monocytes 8.8 % (0.0-10.0); %Neutrophils 61.1 % (42.0-75.0); Hemoglobin 12.1 g/dL (12.0-16.0); Mean Corpuscular HGB CONC 33.9 g/dL (32.0-36.0); Mean Corpuscular Hemoglobin 32.2 pg (27.0-31.0); Mean Corpuscular Volume 95.2 fL (78.0-98.0); Mean Platelet Volume 7.2 fL (7.4-10.4); Platelet Count 285 thou/uL (130-400); RBC Distribution Width 11.7 % (11.5-14.5); Red Blood Cell (RBC) Count 3.74 mill/uL (4.20-5.40); White Blood Cell (WBC) Count 8.2 thou/uL (4.8-10.8)
[2019-04-18 06:34] LABS: Anion Gap 15 mmol/L (10-20); BUN (Urea Nitrogen) 11 mg/dL (9.8-20.1); Calc. Creatinine Clearance 68 mL/min (70-130); Calcium 9.6 mg/dL (7.8-10.44); Carbon Dioxide 25 mmol/L (23-31); Chloride 98 mmol/L (98-107); Estimated GFR-MDRD 73; Glucose 104 mg/dL (83-110); Potassium 4.3 mmol/L (3.5-5.1); Sodium 134 mmol/L (136-145)
--- NOTE | 2019-04-18 08:12 | HP ---
PRESENTING COMPLAINT: Altered mental status. HISTORY OF PRESENT ILLNESS: Amee Herrera is a 74-year-old female with past medical history of hypertension, diabetes mellitus, CAD, history of recurrent altered mental status in setting of UTI, brought in by EMS after her roommate found her confused this afternoon. As per son who is present at bedside helping with history, states he last seen the patient conversant last evening when he visited the patient. It is still unknown when the patient's altered mental status started since then. The patient has recently got a shingles shot to the right upper arm. Son says this pattern of altered mental status is typical of her recurrent UTI. The patient right now is a bit confused. She has problem with word-finding difficulty, but able to answer some questions well. PAST MEDICAL HISTORY: Significant for hypertension, diabetes mellitus, hyperlipidemia, coronary artery disease, history of hypothyroidism, history of presumed lupus and history of recurrent UTIs as well as iron deficiency anemia. PAST SURGICAL HISTORY: Cholecystectomy, CABG, EGD, colonoscopy. FAMILY HISTORY: As per record, positive for diabetes as well as heart disease. SOCIAL HISTORY: The patient resides alone. She is a nonsmoker. No history of alcohol or illicit drug use. She ambulates at baseline with a walker. REVIEW OF SYSTEMS: Poor given the patient's slightly confused status. ALLERGIES: PENICILLIN WELL CODEINE. PHYSICAL EXAMINATION: VITAL SIGNS: Blood pressure of 144/59, pulse of 81, respiratory rate of 18, O2 saturation 96% on room air, temperature afebrile. GENERAL: Middle-aged female, not in any distress. HEENT: Head is atraumatic, normocephalic. Pupils are equal and reactive to light. RESPIRATORY: Good air entry bilaterally. No crepitations. CARDIOVASCULAR: S1, S2. Rate and rhythm regular. GI: Abdomen is full, soft, nontender. EXTREMITIES: No pedal edema. No calf tenderness, but notable bandage over the right shoulder with area of palpable and tender square shaped erythema under the area of the Band-Aid. NEUROLOGIC: The patient is alert, oriented to person, partially to place, but not to time. LABORATORY DATA: WBC 9.2, hemoglobin 12.8, neutrophils 73%. Sodium 134, potassium 4.4. AST, alkaline phosphatase normal. Creatinine is 0.8. Urinalysis negative. Urine drug screen negative IMAGING DATA: Chest x-ray shows no acute infiltrates. Brain CT shows no acute intracranial pathology. EKG not done. IMPRESSION: 1. Metabolic encephalopathy, likely due to right arm cellulitis post shingles injection. 2. History of hypertension. 3. History of diabetes mellitus, type 2. PLAN: We will admit the patient to observation. We will start gentle IV fluid. We do empirical antibiotics. Follow culture. We will add ice pack to the area of erythema post injection. It is possible the patient has some subcutaneous infection, vessels reaction to the shingles shot. We will monitor closely. Continue neuro checks. DVT prophylaxis. Lovenox. Resume home regimen. to improve. Advanced directives, as per son, the patient is DNR. Job ID: [id number]
[2019-04-18] MEDS: Spironolactone 25 MG TAB PO SCH (08:29)
[2019-04-18] MEDS: Metoprolol Tartrate 25 MG TAB PO SCH ×2 (08:29→19:43)
[2019-04-18] MEDS: Aspirin 81 mg Enteric Coated Tablet PO SCH (08:29)
[2019-04-18] MEDS: metFORMIN XR 500 MG TAB PO SCH ×2 (08:29→16:21)
[2019-04-18] MEDS: Enoxaparin Sodium 40 MG/0.4 ML SYRINGE SC SCH (08:33)
[2019-04-18] MEDS ORDERED: Colchicine 0.3 MG TAB PO PRN (09:09)
--- NOTE | 2019-04-18 12:18 | PDOC.HOSPP ---
- Subjective Encounter Date: 04/18/19 Encounter Time: 09:55 Subjective: pt up in bed coplains of pain to her right upper arm. - Objective Vital Signs & Weight: Vital Signs (12 hours) Temp Pulse Resp BP Pulse Ox 04/18/19 08:35 98 04/18/19 07:31 98.0 F 68 18 139/77 98 04/18/19 04:40 98.2 F 79 18 133/72 97 Weight Weight 149 lb 14.629 oz I&O: 04/17/19 04/18/19 04/19/19 06:59 06:59 06:59 Intake Total 1150 Balance 1150 Result Diagrams: 04/18/19 05:48 04/18/19 05:48 Additional Labs: Accuchecks 04/18/19 04:41 POC Glucose 102 Hospitalist ROS - Review of Systems Respiratory: denies: cough, dry, shortness of breath, hemoptysis, SOB with excertion, pleuritic pain, sputum, wheezing, other Cardiovascular: denies: chest pain, palpitations, orthopnea, paroxysmal noc. dyspnea, edema, light headedness, other Gastrointestinal: denies: nausea, vomiting, abdominal pain, diarrhea, constipation, melena, hematochezia, other Musculoskeletal: reports: other (right upper arm pain) - Medication Medications: Active Medications Generic Name Dose Route Start Last Admin Trade Name Freq PRN Reason Stop Dose Admin Aspirin 81 mg 04/18/19 09:00 04/18/19 08:29 Ecotrin PO 81 mg DAILY KWAN Administration Enoxaparin Sodium 40 mg 04/18/19 09:00 04/18/19 08:33 Lovenox SC 40 mg 0900 KWAN Administration Sodium Chloride 1,000 mls @ 75 mls/hr 04/17/19 21:30 04/17/19 22:13 Normal Saline 0.9% IV 1,000 mls .[id number] KWAN Administration Levofloxacin 500 mg/ Device 100 mls @ 100 mls/hr 04/17/19 22:00 04/17/19 22: 13 IVPB 100 mls 2200 KWAN Administration Levothyroxine Sodium 100 mcg 04/18/19 06:00 04/18/19 06:04 Synthroid PO 100 mcg 0600 KWAN Administration Metformin HCl 1,000 mg 04/18/19 08:00 04/18/19 08:29 Glucophage Xr PO 1,000 mg BID-WM KWAN Administration Metoprolol Tartrate 12.5 mg 04/17/19 21:00 04/18/19 08:29 Lopressor PO 12.5 mg BID KWAN Administration Simvastatin 40 mg 04/17/19 21:00 04/17/19 22:10 Zocor PO 40 mg HS KWAN Administration Spironolactone 12.5 mg 04/18/19 09:00 04/18/19 08:29 Aldactone PO 12.5 mg DAILY KWAN Administration - Exam Neck: negative: supple, symmetric, no JVD, no thyromegaly, no lymphadenopathy, no carotid bruit, JVD Heart: negative: RRR, no murmur, no gallops, no rubs, normal peripheral pulses, irregular, diminshed peripheral pulses, murmur present, II/IV, III/IV Respiratory: negative: CTAB, no wheezes, no rales, no ronchi, normal chest expansion, no tachypnea, normal percussion, rales, rhonchi, tachypneic, wheezes Skin - other findings: mild erythema and induration below her shingles shot area Hosp A/P (1) Cellulitis Code(s): L03.90 - CELLULITIS, UNSPECIFIED Status: Acute (2) Metabolic encephalopathy Code(s): G93.41 - METABOLIC ENCEPHALOPATHY Status: Acute (3) Hypertension, benign Code(s): I10 - ESSENTIAL (PRIMARY) HYPERTENSION Status: Chronic (4) Hypothyroid Code(s): E03.9 - HYPOTHYROIDISM, UNSPECIFIED Status: Acute - Plan will decrease her synthroid to 88mcg. I believe this is most likely a inflammatory process than infectious. However will continue abx to prevent any superficial infection. will luis the area and apply warm compress.
[2019-04-18] MEDS: Sodium Chloride 0.9% 1,000 ML IV SCH (12:48)
[2019-04-18] MEDS: Simvastatin 40 MG TAB PO SCH (19:43)
[2019-04-18] MEDS: Gabapentin 400 MG CAP PO SCH (19:43)
[2019-04-19] MEDS ORDERED: Levothyroxine Sodium 88 MCG TAB PO SCH (06:00)
[2019-04-19] MEDS: Aspirin 81 mg Enteric Coated Tablet PO SCH (08:03)
[2019-04-19] MEDS: Gabapentin 400 MG CAP PO SCH (08:04)
[2019-04-19] MEDS: Metoprolol Tartrate 25 MG TAB PO SCH (08:05)
[2019-04-19] MEDS: Spironolactone 25 MG TAB PO SCH (08:07)
[2019-04-19] MEDS: metFORMIN XR 500 MG TAB PO SCH (08:08)
[2019-04-19] MEDS: Enoxaparin Sodium 40 MG/0.4 ML SYRINGE SC SCH (08:08)
[2019-04-19] MEDS ORDERED: Losartan 25 MG TAB PO SCH (09:00)
[2019-04-19] MEDS ORDERED: Folic Acid 1 MG TAB PO SCH (09:00)
[2019-04-19] MEDS ORDERED: TRAMADOL PO SCH (09:00)
[2019-04-19] MEDS ORDERED: Cyanocobalamin (Vitamin B-12) 1,000 MCG TAB PO SCH (09:00)
[2019-04-19 11:28] VITALS: BP 133/84; TEMP 97.4
--- NOTE | 2019-04-20 21:32 | DIS ---
DATE OF ADMISSION: 04/17/2019 DATE OF DISCHARGE: 04/19/2019 DISCHARGE DIAGNOSES: 1. Cellulitis, possible of the right upper extremity, possible even an inflammatory process. 2. Metabolic encephalopathy. 3. Hypertension. 4. Hypothyroidism. HOSPITAL COURSE: The patient is a very pleasant 74-year-old female who initially presented to the hospital with change in mental status. According to the patient's family, whenever she has change in mental status, she normally has a urinary tract infection. However, at this time, her urine was completely normal. She had received a shingles shot just a few days prior to this. The patient did have some erythema below the site where she received her shingles shot. The patient initially was started on broad-spectrum antibiotics. Her ESR was 24. She had no leukocytosis. Her CRP was mildly elevated at 11.47. The patient's mentation improved. She had no growth in her urine. She felt better and her mentation was back to baseline. The patient's TSH was checked and it was low at 0.33 at this time, her Synthroid was adjusted and the patient's daughter was notified about this. Unlikely this is cellulitis, most likely this is an inflammatory reaction from the shingles shot; however, we did treat her prophylactically with antibiotics and we will continue another antibiotics for another 5 days. HOME MEDICATIONS: 1. Levaquin 500 mg daily for 5 days and she needs to take some probiotic which I have told the patient's family. 2. Levothyroxine 88 mcg from 100 mcg. I have recommended to follow up with another TSH in a few weeks. 3. Metformin 2 tabs daily. 4. Tramadol 100 mg daily. 5. Simvastatin 40 mg daily. 6. Gabapentin 800 mg b.i.d. 7. Metoprolol 0.5 b.i.d. 8. Flovent 44 mcg daily. 9. Colchicine 0.5 b.i.d. p.r.n. 10. Nexium 40 mg daily. 11. Aspirin 81 mg daily. 12. Cozaar one p.o. daily. 13. Folic acid one p.o. daily. 14. Lasix 20 mg p.o. daily. PHYSICAL EXAMINATION: VITAL SIGNS: Temperature of 97.9, on room air, blood pressure 133/84. GENERAL: She is awake, alert, and oriented x3. Does not appear in any distress. CV: S1 and S2 present. No murmurs, rubs, or gallops. ABDOMEN: Soft and nontender. Bowel sounds are present x2. Her erythema around her site is significantly improved. I have recommended to do warm compresses and if any changes occur, to come into the hospital. Job ID: [id number]
--- NOTE | 2019-04-21 00:49 | PQF ---
RANDALL MAURER KARISHMA [id number] CLINICAL DOCUMENTATION CLARIFICATION FORM: POST DISCHARGE Addendum to original discharge summary date: ____ Late entry note date: __ DATE: 04/21/19 ATTN: Kenzie Villegas Please exercise your independent, professional judgment in responding to the clarification form. Clinical indicators are provided on the bottom of this form for your review Please check appropriate box(s): [ ] Cellultis is a postvaccination complication from Shigles injection [x ] Inflammatory process as postvaccination complication from Shigles Injection [ ] Other diagnosis [ ] Unable to determine In addition, please specify: Present on Admission (POA): [ x] Yes [ ] No [ ] Unable to determine CLINICAL INDICATORS - SIGNS / SYMPTOMS / LABS H&P p1 04/17 Dr Kelly As per son who is present at bedside helping with history, dates he last seen the patient conversant last evening when he visited the patient. It is still unknown when the patient's altered mental status started since then. H&P p1 04/17 Dr Kelly The patient has recently got a shingles shot to the right upper arm. H&P p1 04/17 Dr Kelly Notable bandage over the right Shoulder with area of palpable and tender square shaped erythema under the area of the band-aid H&P p2 04/17 Dr Kelly It is possible the patient has some subcutaneous infection, vessels reaction to the shingle shot RISK FACTORS H&P p1 04/17 - 74-year-old female H&P p2 04/17 Metabolic Encephalopathy H&P p2 04/17 Cellulitis likely due to right arm post shingles injection TREATMENT: Jul 09 IV Levofloxacin Jul 09 Start IV gentle hydration (This form is maintained as a part of the permanent medical record) 2014 [employer]. All Rights Reserved [email or web address] [not provided] MTDD
== END 2019-04-19 14:39 | disposition home or self-care (01) | DRG 865 ==
LOC: ERS 16:53 → T4-B 20:56
PROVIDERS: ADMIT Internal Medicine; ATTEND Internal Medicine
DX: T88.1XXA Other complications following immunization, not elsewhere classified, initial encounter (principal); G93.41 Metabolic encephalopathy; Z66 Do not resuscitate; I10 Essential (primary) hypertension; E03.9 Hypothyroidism, unspecified; L27.1 Localized skin eruption due to drugs and medicaments taken internally; T50.B95A Adverse effect of other viral vaccines, initial encounter; E11.9 Type 2 diabetes mellitus without complications; I25.10 Atherosclerotic heart disease of native coronary artery without angina pectoris; Z87.440 Personal history of urinary (tract) infections; Z90.49 Acquired absence of other specified parts of digestive tract; Z95.1 Presence of aortocoronary bypass graft; Z88.5 Allergy status to narcotic agent; Z88.0 Allergy status to penicillin
CPT/HCPCS: 36415; 36416; 51701; 70450; 71045; 80048; 80053; 80306; 80307; 81003; 83690; 84443; 84484; 85025; 85652; 86140; 87086; 93005; J1650; J1956

== ENCOUNTER 2019-05-05 09:25 | Emergency (ER) | payer MEDICARE, BC ==
--- NOTE | 2019-05-05 10:29 | CT ---
Exam: Head CT without contrast HISTORY: Unwitnessed fall. Trauma. Pain. COMPARISON: 04/17/2019 FINDINGS: Hemorrhage: No intraparenchymal hemorrhage or extra-axial hematoma. Brain parenchyma: Cortical pichardo-white matter differentiation is preserved. No mass effect or midline shift. Basilar cisterns are patent.Age-appropriate atrophy. Minimal chronic small vessel ischemic changes of the white matter. Ventricular system: Ventricles and sulci are patent and symmetric. Calvarium: Intact. Sinuses and mastoid air cells: Adequate aeration. IMPRESSION: No acute intracranial process. No intracranial post traumatic sequelae.
[2019-05-05 10:30] LABS: #Lymphocytes 1.6 thou/uL (1.20-3.40); #Monocytes 0.5 thou/uL (0.11-0.59); #Neutrophils 7.7 thou/uL (1.40-6.50); %Basophils 0.2 % (0.0-1.0); %Eosinophils 0.2 % (0.0-10.0); %Monocytes 5.5 % (0.0-10.0); %Neutrophils 78.1 % (42.0-75.0); Hemoglobin 12.9 g/dL (12.0-16.0); Mean Corpuscular HGB CONC 34.1 g/dL (32.0-36.0); Mean Corpuscular Hemoglobin 32.5 pg (27.0-31.0); Mean Corpuscular Volume 95.2 fL (78.0-98.0); Mean Platelet Volume 7.5 fL (7.4-10.4); Platelet Count 388 thou/uL (130-400); RBC Distribution Width 12.3 % (11.5-14.5); Red Blood Cell (RBC) Count 3.96 mill/uL (4.20-5.40); White Blood Cell (WBC) Count 9.9 thou/uL (4.8-10.8)
--- NOTE | 2019-05-05 10:53 | RAD ---
AP PELVIS: Date: 05/05/2019 HISTORY: Fall yesterday. COMPARISON: 03/04/15 exam. FINDINGS: A pessary is in place. The pelvic ring is intact. The bones are demineralized. There are arthritic ch anges of the spine and both hips. IMPRESSION: No acute injury. POS: [facility]
[2019-05-05 11:15] LABS: ALT (SGPT) 28 U/L (8-55); AST (SGOT) 44 U/L (5-34); Albumin 4.1 g/dL (3.4-4.8); Alkaline Phosphatase 58 U/L (40-110); Anion Gap 21 mmol/L (10-20); BUN (Urea Nitrogen) 13 mg/dL (9.8-20.1); Bilirubin, Total 0.4 mg/dL (0.2-1.2); CK (CPK) 1054 U/L (29-168); Calc. Creatinine Clearance 0 mL/min (70-130); Calcium 9.9 mg/dL (7.8-10.44); Carbon Dioxide 21 mmol/L (23-31); Chloride 102 mmol/L (98-107); Estimated GFR-MDRD 71; Glucose 105 mg/dL (83-110); Potassium 4.1 mmol/L (3.5-5.1); Protein, Total 7.1 g/dL (6.0-8.3); Sodium 140 mmol/L (136-145)
[2019-05-05 11:44] LABS: Bilirubin Negative (Negative); Blood, Urine Negative (Negative); Clarity Clear (Clear); Glucose, Urine (Dipstick) Normal (Negative); Leukocyte Negative Leu/uL (Negative); Nitrite Negative (Negative); Protein, Urine (Dipstick) 10 mg/dL (Neg-Trace); Urobilinogen Normal mg/dL (Less than 2)
== END 2019-05-05 13:19 | disposition home or self-care (01) ==
LOC: ERS 09:25
DX: E86.0 Dehydration (principal); J45.909 Unspecified asthma, uncomplicated; E11.40 Type 2 diabetes mellitus with diabetic neuropathy, unspecified; E03.9 Hypothyroidism, unspecified; K21.9 Gastro-esophageal reflux disease without esophagitis; E78.5 Hyperlipidemia, unspecified; I10 Essential (primary) hypertension; Z79.899 Other long term (current) drug therapy; Z79.84 Long term (current) use of oral hypoglycemic drugs; W19.XXXA Unspecified fall, initial encounter
CPT/HCPCS: 36415; 51701; 70450; 72170; 80053; 81003; 82550; 85025; 93005; 96360; A4353

== ENCOUNTER 2019-05-08 13:47 | Outpatient (CLI) | payer MEDICARE, BC ==
--- NOTE | 2019-05-08 15:55 | ULT ---
BILATERAL CAROTID DUPLEX ULTRASOUND: HISTORY: TIA TECHNIQUE: Grayscale, color-flow and spectral Doppler ultrasound imaging of the extracranial carotid artery syst ems and vertebral arteries was performed bilaterally. FINDINGS: There is moderate partially calcified atherosclerotic plaque involving the carotid bulb and proximal right ECA. Mild atherosclerotic plaque is seen involving the proximal ICAs. The peak systolic velocity in the right ICA measures 67.1 cm/s. The peak systolic velocity in the ri ght CCA measures 73.0 cm/s. The peak systolic velocity in the left ICA measures 53.1 cm/s. The peak systolic velocity in the l eft CCA measures 101 cm/s. The right IC/CC ratio is1.08. The left IC/CC ratio is 0.53. Vertebral flow: antegrade, bilaterally. . IMPRESSION: No hemodynamically significant stenosis of both internal carotid arteries.
== END 2019-05-08 13:48 | disposition home or self-care (01) ==
LOC: BICULT 13:47
PROVIDERS: ATTEND Family Medicine
DX: G45.9 Transient cerebral ischemic attack, unspecified (principal)
CPT/HCPCS: 93880

== ENCOUNTER 2019-12-29 09:17 | Outpatient (CLI) | payer MEDICARE, BC ==
--- NOTE | 2019-12-29 10:19 | MRI ---
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 Multiple falls. TECHNIQUE: Multiplanar, multisequence MRI of the brain obtained pre and post IV injection of gadolinium based co ntrast agent. FINDINGS: The ventricles are mildly dilated, probably due to central brain parenchymal volume loss. Sulcal luis ings are diffusely prominent, representing cortical atrophy. There is no midline shift or any other evidence of mass effect. There is no extra-axial fluid collection. There are mild chronic ischemic wh ite matter changes due to microvascular atherosclerosis. There is otherwise no major intra-axial signal abnormality, abnormal enhancement, mass, recent hemorrhage, or restricted diffusion. IMPRESSION: 1) involutional changes and mild chronic ischemic white matter changes not unusual for this age group . 2) otherwise negative
[2019-12-29] MEDS ORDERED: Magnevist 469MG/ML 20 ML VIAL ONE (13:57)
== END 2019-12-29 09:18 | disposition home or self-care (01) ==
LOC: MRI 09:17
PROVIDERS: ATTEND Psychiatry & Neurology Neurology
DX: G31.1 Senile degeneration of brain, not elsewhere classified (principal); I67.82 Cerebral ischemia
CPT/HCPCS: 70553; A9579

== ENCOUNTER 2020-12-20 08:34 | Outpatient (CLI) | payer MEDICARE, MEDICAID | END 2020-12-20 08:35 | disposition home or self-care (01) | LOC: CT 08:34 | PROVIDERS: ATTEND Family Medicine | DX: R09.02 Hypoxemia (principal); I25.84 Coronary atherosclerosis due to calcified coronary lesion; K44.9 Diaphragmatic hernia without obstruction or gangrene; Z90.49 Acquired absence of other specified parts of digestive tract; Z98.890 Other specified postprocedural states | CPT/HCPCS: 71250 ==

== ENCOUNTER 2021-01-25 20:34 | Inpatient (IN) | payer MEDICARE, MEDICAID ==
[2021-01-25 21:07] LABS: #Eosinphils 0.1 thou/uL (0.0-0.7); #Lymphocytes 4.1 thou/uL (1.20-3.40); #Monocytes 1.1 thou/uL (0.11-0.59); #Neutrophils 10.3 thou/uL (1.40-6.50); %Basophils 0.2 % (0.0-1.0); %Eosinophils 0.6 % (0.0-10.0); %Neutrophils 66.2 % (42.0-75.0); Hemoglobin 13.6 g/dL (12.0-16.0); Mean Corpuscular HGB CONC 33.6 g/dL (32.0-36.0); Mean Corpuscular Hemoglobin 31.2 pg (27.0-31.0); Mean Corpuscular Volume 92.7 fL (78.0-98.0); Mean Platelet Volume 8.2 fL (7.4-10.4); Platelet Count 308 thou/uL (130-400); RBC Distribution Width 14.1 % (11.5-14.5); Red Blood Cell (RBC) Count 4.35 mill/uL (4.20-5.40); White Blood Cell (WBC) Count 15.6 thou/uL (4.8-10.8)
[2021-01-25 21:24] LABS: ALT (SGPT) 12 U/L (8-55); AST (SGOT) 13 U/L (5-34); Albumin 3.6 g/dL (3.4-4.8); Alkaline Phosphatase 93 U/L (40-110); Anion Gap 17 mmol/L (10-20); BUN (Urea Nitrogen) 27 mg/dL (9.8-20.1); Bilirubin, Total 0.8 mg/dL (0.2-1.2); Calc. Creatinine Clearance 0 mL/min (70-130); Calcium 9.4 mg/dL (7.8-10.44); Carbon Dioxide 30 mmol/L (23-31); Chloride 100 mmol/L (98-107); Globulin 3.3 g/dL (2.4-3.5); Glucose 249 mg/dL (83-110); Potassium 3.9 mmol/L (3.5-5.1); Protein, Total 6.9 g/dL (5.8-8.1); Sodium 143 mmol/L (136-145)
[2021-01-25 21:54] LABS: Bacteria/HPF 4+ HPF (None Seen); Bilirubin Negative (Negative); Blood, Urine 1+ (Negative); Clarity Turbid (Clear); Glucose, Urine (Dipstick) Normal (Negative); Ketone, Urine Trace mg/dL (Negative); Leukocyte 500 Leu/uL (Negative); Nitrite 2+ (Negative); Protein, Urine (Dipstick) 50 mg/dL (Neg-Trace); Specific Gravity, Urine 1.017 (1.002-1.036); Squamous Epithelial 0-3 HPF (0-3); Urobilinogen Normal mg/dL (Less than 2); WBC/HPF 21-50 HPF (0-3)
[2021-01-25] MEDS ORDERED: Ondansetron PF 4 MG/2 ML Vial ONE (22:14)
[2021-01-25] MEDS ORDERED: cefTRIAXone\\ROCEPHIN 2 GM VIAL ONE (22:14)
[2021-01-26 01:48] VITALS: BMI 28.0
[2021-01-26] MEDS ORDERED: Acetaminophen 650 MG Suppository PR PRN (04:15)
[2021-01-26] MEDS ORDERED: Ondansetron ODT 4 MG TAB PO PRN (04:15)
[2021-01-26] MEDS ORDERED: Ondansetron PF 4 MG/2 ML Vial IVP PRN (04:15)
[2021-01-26] MEDS ORDERED: Dextrose 5% in Water 1,000 ML IV PRN (05:00)
[2021-01-26] MEDS ORDERED: Dextrose 50% Abboject 50 ML SYRINGE SLOW IVP PRN (05:00)
[2021-01-26] MEDS ORDERED: HumaLOG 300 UNITS/3 ML VIAL SC PRN (05:00)
[2021-01-26] MEDS: HumaLOG 300 UNITS/3 ML VIAL SC PRN ×2 (06:05→21:52)
[2021-01-26] MEDS: Enoxaparin Sodium 40 MG/0.4 ML SYRINGE SC SCH (09:27)
[2021-01-26] MEDS: traMADol HCl 50 MG TAB PO PRN (15:35)
[2021-01-26] MEDS: Acetaminophen 325 MG TAB PO PRN (15:37)
[2021-01-26 16:49] LABS: SARS-CoV-2 PCR by NAA Not Detected (NotDetected)
[2021-01-26] MEDS: Mometasone 100 MCG/Formoterol 5 MCG 120 PUFF INHALER INH SCH (19:17)
[2021-01-26] MEDS: Metoprolol Tartrate 25 MG TAB PO SCH (21:46)
[2021-01-26] MEDS: Atorvastatin Calcium 20 MG TAB PO SCH (21:46)
[2021-01-26] MEDS: Colchicine 0.3 MG TAB PO SCH (21:47)
[2021-01-26] MEDS: cefTRIAXone\\ROCEPHIN 1 GM in Sodium Chloride 0.9% 100 ML IVPB SCH (21:58)
[2021-01-27] MEDS: Acetaminophen 325 MG TAB PO PRN (05:00)
[2021-01-27] MEDS: HumaLOG 300 UNITS/3 ML VIAL SC PRN (06:11)
[2021-01-27] MEDS ORDERED: TRAMADOL HCL 100 MG PO PRN (07:59)
[2021-01-27 08:16] LABS: Hemoglobin 11.4 g/dL (12.0-16.0); Mean Corpuscular HGB CONC 33.5 g/dL (32.0-36.0); Mean Corpuscular Hemoglobin 30.7 pg (27.0-31.0); Mean Corpuscular Volume 91.7 fL (78.0-98.0); Mean Platelet Volume 8.3 fL (7.4-10.4); Platelet Count 302 thou/uL (130-400); RBC Distribution Width 13.8 % (11.5-14.5); Red Blood Cell (RBC) Count 3.71 mill/uL (4.20-5.40); White Blood Cell (WBC) Count 14.2 thou/uL (4.8-10.8)
[2021-01-27] MEDS ORDERED: METFORMIN HCL 500 MG PO SCH (09:00)
[2021-01-27] MEDS ORDERED: Losartan 25 MG TAB PO SCH (09:00)
[2021-01-27] MEDS: metFORMIN 500 MG TAB PO SCH ×2 (09:40→20:38)
[2021-01-27] MEDS: Losartan 25 MG TAB PO SCH (09:41)
[2021-01-27] MEDS: Metoprolol Tartrate 25 MG TAB PO SCH ×2 (09:41→20:31)
[2021-01-27] MEDS: Aspirin 81 mg Enteric Coated Tablet PO SCH (09:41)
[2021-01-27] MEDS: Enoxaparin Sodium 40 MG/0.4 ML SYRINGE SC SCH (09:42)
[2021-01-27] MEDS: traMADol HCl 50 MG TAB PO PRN ×2 (09:44→20:49)
[2021-01-27] MEDS: Colchicine 0.3 MG TAB PO SCH ×2 (09:51→20:30)
[2021-01-27 09:52] LABS: Band 4 % (5-11); Lymphocytes 22 % (21-51); MDiff Complete? YES; Monocytes 5 % (0-10); Neutrophil 68 % (42-75); Platelet Morphology Comment Appears Adequate; RBC Morphology Normal; Reactive Lymphocytes 1 % (0-10)
[2021-01-27] MEDS: Mometasone 100 MCG/Formoterol 5 MCG 120 PUFF INHALER INH SCH ×2 (10:09→18:44)
[2021-01-27] MEDS: Atorvastatin Calcium 20 MG TAB PO SCH (20:30)
[2021-01-27] MEDS: cefTRIAXone\\ROCEPHIN 1 GM in Sodium Chloride 0.9% 100 ML IVPB SCH (21:54)
[2021-01-28] MEDS: Mometasone 100 MCG/Formoterol 5 MCG 120 PUFF INHALER INH SCH ×3 (07:35→19:31)
[2021-01-28 08:24] LABS: #Eosinphils 0.1 thou/uL (0.0-0.7); #Lymphocytes 2.2 thou/uL (1.20-3.40); #Monocytes 0.6 thou/uL (0.11-0.59); #Neutrophils 9.1 thou/uL (1.40-6.50); %Basophils 0.1 % (0.0-1.0); %Eosinophils 0.8 % (0.0-10.0); %Lymphocytes 18.1 % (21.0-51.0); %Neutrophils 76.1 % (42.0-75.0); Hemoglobin 11.8 g/dL (12.0-16.0); Mean Corpuscular HGB CONC 32.8 g/dL (32.0-36.0); Mean Corpuscular Hemoglobin 30.1 pg (27.0-31.0); Mean Corpuscular Volume 91.7 fL (78.0-98.0); Mean Platelet Volume 8.4 fL (7.4-10.4); Platelet Count 307 thou/uL (130-400); RBC Distribution Width 13.7 % (11.5-14.5); Red Blood Cell (RBC) Count 3.94 mill/uL (4.20-5.40); White Blood Cell (WBC) Count 11.9 thou/uL (4.8-10.8)
[2021-01-28 08:47] LABS: Anion Gap 15 mmol/L (10-20); BUN (Urea Nitrogen) 17 mg/dL (9.8-20.1); Calc. Creatinine Clearance 62 mL/min (70-130); Calcium 8.8 mg/dL (7.8-10.44); Carbon Dioxide 27 mmol/L (23-31); Chloride 103 mmol/L (98-107); Glucose 164 mg/dL (83-110); Potassium 3.8 mmol/L (3.5-5.1); Sodium 141 mmol/L (136-145)
[2021-01-28] MEDS: Lactated Ringer's 1,000 ML IV SCH ×2 (09:36→22:45)
[2021-01-28] MEDS: metFORMIN 500 MG TAB PO SCH ×2 (09:37→20:59)
[2021-01-28] MEDS: Metoprolol Tartrate 25 MG TAB PO SCH ×2 (09:38→20:59)
[2021-01-28] MEDS: Losartan 25 MG TAB PO SCH (09:38)
[2021-01-28] MEDS: Colchicine 0.3 MG TAB PO SCH ×2 (09:38→21:44)
[2021-01-28] MEDS: Aspirin 81 mg Enteric Coated Tablet PO SCH (09:38)
[2021-01-28] MEDS: Enoxaparin Sodium 40 MG/0.4 ML SYRINGE SC SCH (09:39)
[2021-01-28] MEDS: traMADol HCl 50 MG TAB PO PRN ×2 (09:39→21:01)
[2021-01-28] MEDS: Atorvastatin Calcium 20 MG TAB PO SCH (20:58)
[2021-01-28] MEDS: HumaLOG 300 UNITS/3 ML VIAL SC PRN (21:35)
[2021-01-28] MEDS: cefTRIAXone\\ROCEPHIN 1 GM in Sodium Chloride 0.9% 100 ML IVPB SCH (21:40)
[2021-01-29] MEDS: Mometasone 100 MCG/Formoterol 5 MCG 120 PUFF INHALER INH SCH ×2 (06:20→19:43)
[2021-01-29] MEDS: Lactated Ringer's 1,000 ML IV SCH ×2 (07:27→14:45)
[2021-01-29 08:15] LABS: #Basophils 0.1 thou/uL (0.0-0.2); #Eosinphils 0.3 thou/uL (0.0-0.7); #Lymphocytes 2.3 thou/uL (1.20-3.40); #Monocytes 0.7 thou/uL (0.11-0.59); #Neutrophils 6.8 thou/uL (1.40-6.50); %Basophils 0.5 % (0.0-1.0); %Eosinophils 3.4 % (0.0-10.0); %Monocytes 6.4 % (0.0-10.0); %Neutrophils 66.8 % (42.0-75.0); Mean Corpuscular Hemoglobin 30.3 pg (27.0-31.0); Mean Corpuscular Volume 91.9 fL (78.0-98.0); Mean Platelet Volume 8.4 fL (7.4-10.4); Platelet Count 307 thou/uL (130-400); RBC Distribution Width 13.6 % (11.5-14.5); Red Blood Cell (RBC) Count 3.61 mill/uL (4.20-5.40); White Blood Cell (WBC) Count 10.1 thou/uL (4.8-10.8)
[2021-01-29 08:35] LABS: Anion Gap 11 mmol/L (10-20); BUN (Urea Nitrogen) 12 mg/dL (9.8-20.1); Calc. Creatinine Clearance 75 mL/min (70-130); Calcium 8.5 mg/dL (7.8-10.44); Carbon Dioxide 26 mmol/L (23-31); Chloride 105 mmol/L (98-107); Glucose 146 mg/dL (83-110); Potassium 3.6 mmol/L (3.5-5.1); Sodium 138 mmol/L (136-145)
[2021-01-29] MEDS: metFORMIN 500 MG TAB PO SCH ×2 (08:57→20:08)
[2021-01-29] MEDS: Aspirin 81 mg Enteric Coated Tablet PO SCH (08:57)
[2021-01-29] MEDS: Enoxaparin Sodium 40 MG/0.4 ML SYRINGE SC SCH (08:58)
[2021-01-29] MEDS: Losartan 25 MG TAB PO SCH (08:58)
[2021-01-29] MEDS: Metoprolol Tartrate 25 MG TAB PO SCH ×2 (08:58→20:09)
[2021-01-29] MEDS: Colchicine 0.3 MG TAB PO SCH ×2 (09:26→20:20)
[2021-01-29] MEDS: Atorvastatin Calcium 20 MG TAB PO SCH (20:08)
[2021-01-29] MEDS: traMADol HCl 50 MG TAB PO PRN (20:15)
[2021-01-29] MEDS: cefTRIAXone\\ROCEPHIN 1 GM in Sodium Chloride 0.9% 100 ML IVPB SCH (21:59)
[2021-01-30] MEDS: Lactated Ringer's 1,000 ML IV SCH ×2 (03:57→08:36)
[2021-01-30] MEDS: Mometasone 100 MCG/Formoterol 5 MCG 120 PUFF INHALER INH SCH ×2 (06:29→18:04)
[2021-01-30 07:02] LABS: #Eosinphils 0.3 thou/uL (0.0-0.7); #Lymphocytes 2.4 thou/uL (1.20-3.40); #Monocytes 0.4 thou/uL (0.11-0.59); #Neutrophils 5.5 thou/uL (1.40-6.50); %Basophils 0.5 % (0.0-1.0); %Eosinophils 3.3 % (0.0-10.0); %Lymphocytes 28.1 % (21.0-51.0); %Monocytes 4.9 % (0.0-10.0); %Neutrophils 63.2 % (42.0-75.0); Mean Corpuscular HGB CONC 33.4 g/dL (32.0-36.0); Mean Corpuscular Hemoglobin 30.6 pg (27.0-31.0); Mean Corpuscular Volume 91.5 fL (78.0-98.0); Mean Platelet Volume 8.1 fL (7.4-10.4); Platelet Count 298 thou/uL (130-400); RBC Distribution Width 13.3 % (11.5-14.5); Red Blood Cell (RBC) Count 3.61 mill/uL (4.20-5.40); White Blood Cell (WBC) Count 8.7 thou/uL (4.8-10.8)
[2021-01-30 07:19] LABS: Anion Gap 11 mmol/L (10-20); BUN (Urea Nitrogen) 8 mg/dL (9.8-20.1); Calc. Creatinine Clearance 78 mL/min (70-130); Calcium 8.7 mg/dL (7.8-10.44); Carbon Dioxide 25 mmol/L (23-31); Chloride 105 mmol/L (98-107); Glucose 130 mg/dL (83-110); Potassium 3.8 mmol/L (3.5-5.1); Sodium 137 mmol/L (136-145); Uric Acid 5.6 mg/dL (2.6-6.0)
[2021-01-30] MEDS: Aspirin 81 mg Enteric Coated Tablet PO SCH (08:34)
[2021-01-30] MEDS: Metoprolol Tartrate 25 MG TAB PO SCH ×2 (08:34→21:02)
[2021-01-30] MEDS: Losartan 25 MG TAB PO SCH (08:35)
[2021-01-30] MEDS: Enoxaparin Sodium 40 MG/0.4 ML SYRINGE SC SCH (08:35)
[2021-01-30] MEDS: metFORMIN 500 MG TAB PO SCH ×2 (08:35→21:25)
[2021-01-30] MEDS: Colchicine 0.3 MG TAB PO SCH ×2 (08:35→21:02)
[2021-01-30] MEDS: cefTRIAXone\\ROCEPHIN 1 GM in Sodium Chloride 0.9% 100 ML IVPB SCH (21:01)
[2021-01-30] MEDS: Atorvastatin Calcium 20 MG TAB PO SCH (21:02)
[2021-01-30] MEDS: Acetaminophen 325 MG TAB PO PRN (21:12)
[2021-01-31] MEDS: Mometasone 100 MCG/Formoterol 5 MCG 120 PUFF INHALER INH SCH ×2 (05:41→18:49)
[2021-01-31] MEDS: Enoxaparin Sodium 40 MG/0.4 ML SYRINGE SC SCH (08:29)
[2021-01-31] MEDS: Losartan 25 MG TAB PO SCH (08:30)
[2021-01-31] MEDS: Metoprolol Tartrate 25 MG TAB PO SCH ×2 (08:30→20:23)
[2021-01-31] MEDS: metFORMIN 500 MG TAB PO SCH ×2 (08:30→20:24)
[2021-01-31] MEDS: Aspirin 81 mg Enteric Coated Tablet PO SCH (08:30)
[2021-01-31] MEDS: Colchicine 0.3 MG TAB PO SCH ×2 (08:31→20:24)
[2021-01-31] MEDS: cefTRIAXone\\ROCEPHIN 1 GM in Sodium Chloride 0.9% 100 ML IVPB SCH (20:22)
[2021-01-31] MEDS: Atorvastatin Calcium 20 MG TAB PO SCH (20:24)
[2021-01-31] MEDS: Acetaminophen 325 MG TAB PO PRN (20:25)
[2021-02-01] MEDS: Colchicine 0.3 MG TAB PO SCH ×2 (06:12→20:27)
[2021-02-01] MEDS: Mometasone 100 MCG/Formoterol 5 MCG 120 PUFF INHALER INH SCH ×2 (06:41→19:01)
[2021-02-01] MEDS: metFORMIN 500 MG TAB PO SCH ×2 (08:16→20:28)
[2021-02-01] MEDS: Aspirin 81 mg Enteric Coated Tablet PO SCH (08:17)
[2021-02-01] MEDS: Metoprolol Tartrate 25 MG TAB PO SCH ×2 (08:17→20:28)
[2021-02-01] MEDS: Enoxaparin Sodium 40 MG/0.4 ML SYRINGE SC SCH (08:17)
[2021-02-01] MEDS: Losartan 25 MG TAB PO SCH (08:18)
[2021-02-01] MEDS: cefTRIAXone\\ROCEPHIN 1 GM in Sodium Chloride 0.9% 100 ML IVPB SCH (14:58)
[2021-02-01] MEDS: Atorvastatin Calcium 20 MG TAB PO SCH (20:28)
[2021-02-02 07:51] VITALS: BP 143/78; TEMP 98.2
[2021-02-02] MEDS: Enoxaparin Sodium 40 MG/0.4 ML SYRINGE SC SCH (08:04)
[2021-02-02] MEDS: Metoprolol Tartrate 25 MG TAB PO SCH (08:05)
[2021-02-02] MEDS: Colchicine 0.3 MG TAB PO SCH (08:05)
[2021-02-02] MEDS: Losartan 25 MG TAB PO SCH (08:05)
[2021-02-02] MEDS: metFORMIN 500 MG TAB PO SCH (08:05)
[2021-02-02] MEDS: Aspirin 81 mg Enteric Coated Tablet PO SCH (08:05)
[2021-02-02] MEDS: Mometasone 100 MCG/Formoterol 5 MCG 120 PUFF INHALER INH SCH (13:37)
== END 2021-02-02 16:07 | disposition hospice, inpatient (51) | DRG 872 ==
LOC: ERS 20:34 → T4-B 23:29 → OBSVTOIN 01-26 16:51
PROVIDERS: ADMIT Student in an Organized Health Care Education/Training Program; ATTEND Internal Medicine
DX: A41.9 Sepsis, unspecified organism (principal); N39.0 Urinary tract infection, site not specified; G93.49 Other encephalopathy; N17.9 Acute kidney failure, unspecified; B96.20 Unspecified Escherichia coli [E. coli] as the cause of diseases classified elsewhere; N18.9 Chronic kidney disease, unspecified; M25.422 Effusion, left elbow; E11.22 Type 2 diabetes mellitus with diabetic chronic kidney disease; J45.909 Unspecified asthma, uncomplicated; E11.40 Type 2 diabetes mellitus with diabetic neuropathy, unspecified; I12.9 Hypertensive chronic kidney disease with stage 1 through stage 4 chronic kidney disease, or unspecified chronic kidney disease; S52.121A Displaced fracture of head of right radius, initial encounter for closed fracture; W19.XXXA Unspecified fall, initial encounter; Z20.822 Contact with and (suspected) exposure to COVID-19; E03.9 Hypothyroidism, unspecified; E78.5 Hyperlipidemia, unspecified; K21.9 Gastro-esophageal reflux disease without esophagitis; Z88.5 Allergy status to narcotic agent; Z88.0 Allergy status to penicillin; Z88.8 Allergy status to other drugs, medicaments and biological substances; Z79.82 Long term (current) use of aspirin; Z79.84 Long term (current) use of oral hypoglycemic drugs; Z79.899 Other long term (current) drug therapy; Z90.710 Acquired absence of both cervix and uterus; Z95.1 Presence of aortocoronary bypass graft
CPT/HCPCS: 36415; 36416; 51701; 70450; 71045; 80048; 80053; 81003; 81015; 83605; 84484; 84550; 85007; 85025; 85027; 87077; 87086; 87186; 93005; 94664; 96365; 96372; 96375; G0378; J0696; J1650; J1815; J2405; J3490; J7120; U0003; U0005